=== PATIENT | female | born 1955 | race Caucasian/White ===

== ENCOUNTER 2019-05-27 15:38 | Observation (INO) | payer OTHER ==
[~2019-05-27] VITALS: Ht 170.2 cm; Wt 68.9 kg
[~2019-05-27 15:38] MED LIST: ATIVAN2 MG PO; CIPRO500 MG PO; LISINOPRIL10 MG PO; PREVACID15 M1 PO
--- OUTSIDE RECORDS SUMMARY | 2019-05-27 15:41 | XMS REPORT | Encounter Summary ---
Author Organization Unknown Address [address] [place] [address] Phone [phone] Care Team Providers Care Telephone Claims Representative Name Role Phone Dr. Theresa Calixto 3 [phone] Jon Church MD 107 [phone] Chepe Woodward MD 113 [phone] Cm Hunter MD 130 [phone] Reason for Visit dizziness Instructions 1. Vertigo vertigo: care instructions meclizine 25 mg tablet ENT referral - PLEASE FAX NOTES TO [phone]. vestibular therapy referral - PLEASE FAX NOTES TO [phone]. 2. Cough azithromycin 250 mg tablet 3. Body mass index 25-29 - overweight learning about healthy weight 4. Immunization refused Discussion Note: None recorded. Plan of Care Reminders Provider Appointments Est Patient 07/02/2018 1:30PM Theresa Calixto MD Lab None recorded. Referral ENT Referral 05/06/2018 Temo Crum MD Vestibular Therapy Referral 05/06/2018 [facility] Procedures None recorded. Surgeries None recorded. Imaging None recorded. Medications Name Start Date alendronate 70 mg tablet Take 1 tablet every week by oral route. Take with 8oz of water on empty stomach. Stay upright. Aspir-81 twice a wk azithromycin 250 mg tablet TAKE 2 TABLETS (500 MG) BY ORAL ROUTE ONCE DAILY FOR 1 DAY THEN 1 TABLET (250 MG) BY ORAL ROUTE ONCE DAILY FOR 4 DAYS Breo Ellipta 100 mcg-25 mcg/dose powder for inhalation Inhale 1 puff every day by inhalation route. citalopram 20 mg tablet Take 1 tablet every day by oral route in the morning for 30 days. cyclobenzaprine 10 mg tablet Take 1 tablet every day by oral route as needed for 30 days. may be sedating lisinopril 20 mg-hydrochlorothiazide 12.5 mg tablet TAKE 1 TABLET BY MOUTH ONCE DAILY lorazepam 2 mg tablet Take 1 tablet 3 times a day by oral route as needed. meclizine 25 mg tablet Take 1 tablet 4 times a day by oral route as needed for 10 days. mirtazapine 15 mg tablet Take 1 tablet every day by oral route at bedtime. naproxen 500 mg tablet Take 1 tablet twice a day by oral route as needed for 60 days. take with food Nuplazid 17 mg tablet TAKE 2 TABLETS BY MOUTH EVERY DAY omeprazole 40 mg capsule,delayed release Take 2 capsules every day by oral route. pravastatin 40 mg tablet TAKE ONE TABLET BY MOUTH ONCE DAILY triamcinolone acetonide 0.1 % topical cream APPLY A THIN LAYER TO THE AFFECTED AREA(S) BY TOPICAL ROUTE 2 TIMES PER DAY Vistaril 25 mg capsule Take 1 capsule twice a day by oral route. Medications Administered None recorded. Vitals Height Weight BMI Blood Pressure 5 ft 7 in 186 lbs 29.1 kg/m2 124/72 mm[Hg] Lab Results Date Name Specimen Result Interpretation Description Value Range Status Address 04/09/2018 Erythrocyte Sedimentation Rate by Westergren Method Normal Sed Rate by Modified Westergren 11 mm/h < or=30 mm/h [facility]: [address] [place] [address] 04/09/2018 Uric Acid, Serum or Plasma High Uric Acid 7.3 mg/dL 2.6- 6.0 mg/dL [facility]: [address] [place] [address] Allergies Code Code System Name Reaction Severity Status Onset 2670 RxNorm Codeine Active 68245 RxNorm Gabapentin Hallucinations Severe Active Latex, Natural Rubber Hives Moderate to Severe Active Problems Name Status Onset Date Source Anemia Active 07/18/2016 Gastro-esophageal Reflux Disease with Esophagitis Active 07/18/2016 Electrocardiogram Abnormal Active 07/18/2016 History of Polyp of Colon Active 07/18/2016 Vitamin D Deficiency Active 07/25/2016 Fracture of Shoulder Active 07/26/2016 Breast Lump Active 10/02/2016 Herpes Labialis Active 11/08/2016 Angular Cheilitis Active 01/23/2017 Osteoporosis Active 02/05/2018 Chronic Obstructive Lung Disease Active 02/26/2018 Hyperlipidemia Active Bipolar Disorder Active Anxiety Active Depressive Disorder Active Hypertensive Disorder Active Procedures Date Name Performed by 07/24/2013 Colonoscopy Information not available Hysterectomy (Total) Information not available Partial Hysterectomy Information not available Tonsillectomy Information not available Caesarean Section Information not available Vaccine List Vaccine Type influenza, injectable, quadrivalent 12/22/2015 influenza, unspecified formulation 11/10/2017 Social History Smoking Status Former Smoker (1 PPD) Past Encounters 05/06/2018 Vertigo; Cough; Body Mass Index 25-29 - Overweight; Immunization Refused Theresa Calixto MD: [address] [place] [address], Ph. 04/09/2018 Multiple Joint Pain; Fibromyalgia; Bipolar Disorder; Body Mass Index 25-29 - Overweight; Immunization; Chronic Obstructive Lung Disease Theresa Calixto MD: [address] [place] [address], Ph. History of Present Illness Dizziness Reported By: Patient HPI: Quality: symptoms worse in the evening, spinning. Severity: can't support self when standing, avoiding all activities, lying in bed. Duration: intermittent episodes lasting:, lasts <5 minutes. Onset/Timing: actual date of onset:. Alleviating factors: holding still. Aggravating factors: moving head, positional change. Associated Symptoms: no double vision, no slurred speech, no blindness, no spots in field of vision, no eye pain, no hearing loss, no difficulty understanding speech, no ear discharge, no noise in the ears, no loss of consciousness, no vomiting, no weak limbs, no facial numbness, no difficulty with speech, no tingling around the mouth, normal stools, no seizure, no facial weakness, anxiety or unsteady feelings, nausea. Prior Treatments: meclizine Note:62yo female presents with for evaluation of dizziness/vertigo since 1am morning. Review of Systems Comprehensive General Adult ROS Reported By: Patient Constitutional: Constitutional: no fever Eyes: Eyes: no vision change Cardiovascular: Cardiovascular: no chest pain Respiratory: Respiratory: no cough, no wheezing, no shortness of breath Gastrointestinal: Gastrointestinal: no abdominal pain, dyspepsia, GERD Genitourinary: Genitourinary: urinary loss of control, increased urinary frequency Musculoskeletal: Musculoskeletal: muscle aches, arthralgias/joint pain, back pain, swelling in the extremities Integumentary: Skin: no abnormal mole Neurologic: Neurologic: no loss of consciousness, no headaches, dizziness Psychiatric: Psych: no alcohol abuse, no suicidal thoughts, depression, anxiety Physical Exam Lower Leg, General Adult Exam (Female), Low Back Pain Reported By: Patient Constitutional: General Appearance: healthy-appearing, NAD, well-nourished, well- developed. Ambulation: ambulating normally Gait and Station: Appearance: normal gait Cardiovascular System: Heart Auscultation: RRR, normal S1, normal S2, no murmurs. Neck vessels: no carotid bruits Skin: Inspection and palpation: no rash, no lesions Psychiatric: Mood and Affect: active and alert, normal affect, normal mood Heating Element Builder: Heating Element Builder: present; Eyes: Lids and Conjunctivae: non-injected, no discharge, no pallor. Pupils: PERRLA. EOM: EOMI. Sclerae: non-icteric Lungs: Respiratory effort: no dyspnea. Auscultation: breath sounds normal, good air movement, no wheezing, no rales/crackles Abdomen: Bowel Sounds: normal. Inspection and Palpation: soft Musculoskeletal:: Motor Strength and Tone: normal motor strength. Joints, Bones, and Muscles: no bony abnormalities, no contractures, no malalignment, limited ROM, tenderness. Extremities: edema
--- OUTSIDE RECORDS SUMMARY | 2019-05-27 15:41 | XMS REPORT | Encounter Summary ---
Author Organization Unknown Address [address] [place] [address] Phone [phone] Care Team Providers Care Call Center Consultant Name Role Phone Dr. Theresa Calixto 3 [phone] Jon Church MD 107 [phone] Cm Hunter MD 130 [phone] Reason for Visit Hypertensive disorder; Anxiety; Osteoporosis; Bipolar disorder; Hyperlipidemia Instructions 1. Multiple joint pain 2. Screening for malignant neoplasm of colon 3. Hyperlipidemia pravastatin 40 mg tablet lipid panel, serum CMP, serum or plasma HbA1c (hemoglobin A1c), blood 4. Hypertensive disorder 5. Bipolar disorder bipolar disorder: care instructions learning about mood disorders 6. Osteoporosis vitamin D, 25-hydroxy, total, serum 7. Anxiety 8. Body mass index 25-29 - overweight learning about healthy weight 9. Immunization refused 10. Anemia CBC w/ auto diff Discussion Note: None recorded. Plan of Care Reminders Provider Appointments Est Patient 12/30/2018 1:30PM Theresa Calixto MD Lab Lipid Panel, Serum 07/02/2018 [facility] CMP, Serum or Plasma 07/02/2018 [facility] Vitamin D, 25-Hydroxy, Total, Serum 07/02/2018 [facility] CBC W/ Auto Diff 07/02/2018 [facility] HbA1C (Hemoglobin a1C), Blood 07/02/2018 [facility] Referral None recorded. Procedures None recorded. Surgeries None recorded. Imaging None recorded. Medications Name Start Date alendronate 70 mg tablet Take 1 tablet every week by oral route. Take with 8oz of water on empty stomach. Stay upright. Aspir-81 twice a wk Breo Ellipta 100 mcg-25 mcg/dose powder for inhalation Inhale 1 puff every day by inhalation route. citalopram 20 mg tablet Take 1 tablet every day by oral route in the morning for 30 days. cyclobenzaprine 10 mg tablet Take 1 tablet every day by oral route as needed for 30 days. may be sedating hydroxyzine pamoate 25 mg capsule TAKE 1 CAPSULE BY MOUTH TWICE DAILY lisinopril 20 mg-hydrochlorothiazide 12.5 mg tablet TAKE 1 TABLET BY MOUTH ONCE DAILY appt reminder 07-02-2018 1:30 PM, Theresa Calixto MD lorazepam 2 mg tablet TAKE 1 TABLET BY MOUTH THREE TIMES DAILY NEEDED mirtazapine 15 mg tablet Take 1 tablet [...] BY TOPICAL ROUTE 2 TIMES PER DAY Medications Administered None recorded. Vitals Height Weight BMI Blood Pressure 5 ft 7 in 187.4 lbs 29.4 kg/m2 120/74 mm[Hg] Lab Results None recorded. Allergies Code Code System Name Reaction Severity Status Onset 2670 RxNorm Codeine Active 26652 RxNorm Gabapentin Hallucinations Severe Active Latex, Natural [...] Status Former Smoker (1 PPD) Past Encounters 07/02/2018 Multiple Joint Pain; Screening for Malignant Neoplasm of Colon; Hyperlipidemia; Hypertensive Disorder; Bipolar Disorder; Osteoporosis; Anxiety; Body Mass Index 25-29 - Overweight; Immunization Refused; Anemia Theresa Calixto MD: [address] [place] [address], Ph. History of Present Illness Note:63yo female presents for follow-up visit. Since last visit, pt has been able to get her Nuplazid medication from [facility] in [place], now a 34mg tablet instead of two 17mg tablets. <div>Last visit 05/06/18 for vertigo (BPPV of left ear) - went to two sessions of physical therapy at [facility] with excellent results. Canalith repositioning maneuvers. Still using meclizine as needed, but no dizziness like previously. Could not tolerate half-somersault procedure, made her vomit.</div><div>
</div><div>Here today for medication refills.</div><div>
</div><div>GI consult note, Dr Church reviewed. Pt had EGD on 02/14/18 with esophagitis, hiatal hernia, gastritis. Scheduled for colonoscopy about 07/15/18. Continue Prilosec 40mg bid. </div><div> </div> <div>Pt notes that she is scheduled to see cultural anthropology professor, Dr Tristan, on July 18, 2018. Most recently had neg RM, RF, ESR of 11 on 10/15/17. Also with shoulder pain, chronic low back pain. Was told in past that she has fibromyalgia, gout, and arthritis. No longer with left ankle pain. Once took Lyrica from Dr Maloney for fibromyalgia. Was never on allopurinol for gout. Last uric acid was 7.3 on 04/09/18. Using naproxen & flexeril as needed for back pain.</div><div>
<div>Had XR of lumbar spine on 12/13/17 with diffuse degenerative disc disease in entire lumbar spine.</div><div>
</div><div> Previously:</div><div><div>Chronic cough. <span style="font-size: 14px;">Quit smoking in 2005 after 30-pk-yr (</span>1ppd<span style="font-size: 14px;"> since age 19 to 51).</span><div>
Last visit two weeks ago on 02/05/18 for mammogram & bone density results from [facility] imaging on 01/08/18. Mammogram - normal 01/08/18. Bone density with osteoporosis on 01/08/18.</div>< div>
<div>Discussed osteoporosis with pt. She notes that her mother & sister both have osteoporosis. Discussed taking both calcium & vitamin D supplement (Caltrate D, Os-Lamont D) 500-600mg bid to increase absorption. Weight- bearing exercise, such as walking. Will start Fosamax 70mg weekly - discussed taking this medication first thing in morning on empty stomach with 8oz water. Stay upright. Nothing to eat or drink for 30minutes afterwards. Repeat bone density in one year.</div><div>Pt due for regular 3-mo follow-up & medication refill by 04/16/18.</div></div></div><div>
</div><div>Pt's brother had both kidney & bladder cancer at age 44 -had one kidney removed & part of bladder - he has been in remission. Is being evaluated to see if re currence.
</div><div>Pt's mother with leukemia, SLE, and blood clots.
< /div><div>Pt's daughter, mother, sister all have lupus. At last visit on 10/15/17, neg RM, RF, ESR.
</div><div>
</div><div>PMHx:
</div><div>COPD - was on Breo in past. Smoked for 14yrs. Quit 13yrs ago.
</div><div>Parkinson's - was on medication in past.
</div><div>Memory loss - trouble remembering things
</div><div>Restless legs - was on requip in past.
</div><div>Hx of polyp of colon - saw Dr. Church, GI in 09/2017 - Due to update colonoscopy.
< /div><div>Hx of hemorrhoids.
</div><div>Bipolar disorder - on multiple meds. 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
</div><div>Anxiety d/o.</div></div></div> Review of Systems:ROS as noted in the HPI Review of Systems Comprehensive General Adult ROS [...] Neurologic: Neurologic: no loss of consciousness, no headaches Psychiatric: Psych: no alcohol abuse, no suicidal [...] active and alert, normal affect, normal mood Angle Dozer Operator: Angle Dozer Operator: present; Eyes: Lids and Conjunctivae: non-injected, no [...]
--- OUTSIDE RECORDS SUMMARY | 2019-05-27 15:41 | XMS REPORT ---
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 Allergies, Adverse Reactions, Alerts Allergy Name Allergy Type Status Severity Reaction(s) Onset Date Inactive Date Treating Clinician Comments codeine DA Active [place] 2019-04-28 00:00:00 adhesive tape DA Active U 2019-04-28 00:00:00 codeine DA Active NH 2018-08-22 00:00:00 adhesive tape DA Active U 2018-08-22 00:00:00 codeine DA Active NH 2018-08-12 00:00:00 adhesive tape DA Active U 2018-08-12 00:00:00 codeine DA Active NH 2016-05-26 00:00:00 MEDICAL TAPE DA Active MO 2016-05-11 00:00:00 Medications This patient has no known medications. Results Test Description Test Time Test Comments Text Results Atomic Results Result Comments RENAL FUNCTION PANEL 2019-05-13 06:08:00 SODIUM (test code=NA) 142 mmol/L 134-147 POTASSIUM (test code=K) 3.6 mmol/L 3.4-5.0 CHLORIDE (test code=CL) 109 mmol/L 100-108 CARBON DIOXIDE (test code=CO2) 26 mmol/L 21-32 GLUCOSE (test code=GLU) 89 MG/DL 70-110 BLOOD UREA NITROGEN (test code=BUN) 12 MG/DL 7-18 GLOMERULAR FILTRATION RATE (test code=GFR) >=60 max estimate estGFR >60 CREATININE (test code=CREAT) 0.8 MG/DL 0.6-1.0 ALBUMIN (test code=ALB) 3.3 G/DL 3.4-5.0 CALCIUM (test code=CA) 8.9 MG/DL 8.5-10.1 PHOSPHOROUS (test code=PHOS) 2.4 MG/DL 2.5-4.9 [id number] 06:08:00* Test Item Value Reference Range Comments MAGNESIUM (test code=MAG) 1.1 MG/DL 1.8-2.4 THYROID STIMULATING [id number] 06:08:00* Test Item Value Reference Range Comments THYROID STIMULATING HORMONE (test code=TSH) 1.280 mcIU/ML 0.340-4.820 VITAMIN D [id number] 06:08:00* Test Item Value Reference Range Comments VITAMIN D 25-HYDROXY (test code=VITD25) 49.4 ng/mL 30.0-100.0 Vitamin D deficiency has been defined by the [place] of[employer] and an Endocrine Society practice guideline as alevel of serum 25-OH vitamin D less than 20 ng/mL (1,2).The Endocrine Society went on to further define vitamin Dinsufficiency as a level between 21 and 29 ng/mL (2).1. IOM ([place] of [employer]). 2010. Dietary reference intakes for calcium and D. [place]: The National Academies Press.2. Ivet MF, Bhargav NC, Shima MCFARLAND, et al. Evaluation, treatment, and prevention of vitamin D deficiency: an Endocrine Society clinical practice guideline. JCEM. 2010; 96(7):1911-30.Performed At: [facility] [address] [id number] Christiano Hays MD Ph:[phone] - HEAD AND [id number] 14:51:00 Name: MERCEDEZ PEARSON [facility]ly [facility] : 1955 Age/S: 63 / F [address] Unit #: [id number] Loc: [place] [address] Phys: Poly Garnica MD Acct: [id number] Dis Date: Status: REG CLI PHONE #: [phone] Exam Date: 05/12/2019 1131 FAX #: Reason: THYROID NODULE MEMORY LAPSE EXAMS: CPT: [id number] US HEAD AND NECK 25418 EXAMINATION: - US HEAD AND NECK. LOCATION: S17. HISTORY: Thyroid nodule, memory lapse, E25.81. COMPARISON: None. TECHNIQUE: Routine ultrasound imaging of the thyroid was performed. FINDINGS: The thyroid is normal in size and echotexture. The right lobe of the thyroid measures 4.2 x 1.3 x 2 cm and the left lobe measures 2.9 x 1.1 x 1.3 cm. The isthmus measures 0.3 cm. 4 mm oval hypoechoic nodule in left aspect of thyroid isthmus. There is a questionable 5 mm hyperechoic structure in left neck soft tissues. IMPRESSION: 4 mm oval hypoechoic left thyroid nodule. Questionable 5 mm hyperechoic structure in left neck soft tissues. at 1454 Reported and signed by: Kassidy Paulino M.D. CC: Poly Garnica MD; Theresa Calixto MD Technologist: Peggy Muller, RT(R),RDMS(AB) Trnscb Date/Time: 05/12/2019 (4776) tTEDR.ANS4 PAGE 1 Signed Report Name: MERCEDEZ PEARSON [facility]ly [facility] : 1955 Age/S: 63 / F [address] Unit #: [id number] Loc: [place] [address] Phys: Poly Garnica MD Acct: [id number] Dis Date: Status: REG CLI PHONE #: [phone] Exam Date: 05/12/2019 1138 FAX #: Reason: THYROID NODULE MEMORY LAPSE EXAMS: CPT: [id number] US HEAD AND NECK [address] <Continued> Orig Print D/T: S: 05/12/2019 (3337) Probe: PAGE 2 Signed Report PARATHYROID HORMONE [id number] 12:37:00* Test Item Value Reference Range Comments PARATHYROID HORMONE INTACT (test code=PARAI) 60.8 PG/ML 26-72 RENAL FUNCTION [id number] 11:29:00* Test Item Value Reference Range Comments SODIUM (test code=NA) 142 mmol/L 134-147 POTASSIUM (test code=K) 3.6 mmol/L 3.4-5.0 CHLORIDE (test code=CL) 109 mmol/L 100-108 CARBON DIOXIDE (test code=CO2) 26 mmol/L 21-32 GLUCOSE (test code=GLU) 89 MG/DL 70-110 BLOOD UREA NITROGEN (test code=BUN) 12 MG/DL 7-18 GLOMERULAR FILTRATION RATE (test code=GFR) >=60 max estimate estGFR >60 CREATININE (test code=CREAT) 0.8 MG/DL 0.6-1.0 ALBUMIN (test code=ALB) 3.3 G/DL 3.4-5.0 CALCIUM (test code=CA) 8.9 MG/DL 8.5-10.1 PHOSPHOROUS (test code=PHOS) 2.4 MG/DL 2.5-4.9 [id number] 11:29:00* Test Item Value Reference Range Comments MAGNESIUM (test code=MAG) 1.1 MG/DL 1.8-2.4 THYROID STIMULATING [id number] 11:29:00* Test Item Value Reference Range Comments THYROID STIMULATING HORMONE (test code=TSH) 1.280 mcIU/ML 0.340-4.820 VITAMIN D [id number] 11:29:00* Test Item Value Reference Range Comments VITAMIN D 25-HYDROXY (test code=VITD25) CBC W/O [id number] 11:09:00* Test Item Value Reference Range Comments WHITE BLOOD CELL (test code=WBC) 3.6 K/mm3 3.5-11.0 RED BLOOD CELL (test code=RBC) 3.31 M/mm3 4.70-6.10 HEMOGLOBIN (test code=HGB) 9.9 G/DL 10.4-14.9 HEMATOCRIT (test code=HCT) 31.6 % 31.5-44.1 MEAN CELL VOLUME (test code=MCV) 95.5 Fl 84.5-98.6 MEAN CELL HGB (test code=MCH) 29.9 pg 27.0-34.2 MEAN CELL HGB CONCETRATION (test code=MCHC) 31.3 G/DL 31.5-34.0 RED CELL DISTRIBUTION WIDTH (test code=RDW) 14.9 SD 11.5-14.5 PLATELET COUNT (test code=PLT) 214.0 K/mm3 150-450 MEAN PLATELET VOLUME (test code=MPV) 11.50 fL 7.0-10.5 [id number] 16:17:00 RUN DATE: 05/02/19 [facility] - Lab PAGE 1 RUN TIME: 1617 Specimen Inqui ry RUN USER: INTERFACE PATIENT: MERCEDEZ PEARSON ACCT #: [id number] LOC: [place] U #: [id number] AGE/SX: 63/F ROOM: 2058 RE04/29/19REG DR: Lea Atkinson : 57 BED: A DIS: 05/01/19 STATUS: DIS IN TLOC: SPEC #: [id number] RECD: 04/30/19-1019 STATUS: FILIPE REQ #: [id number] JEB: 04/30/19- SUBM DR: Lea Atkinson MD ENTERED: 04/30/19-1019 SP TYPE: STOMACH OTHR DR: No Olga lance or Family Physician Jon Church MD, Ebima C MDORDERED: GROSS COPIES TO: No Primary or Family Ph ysician Jon Church MD [address], [address] [place] [address] Lea Atkinson MD [address] [place], [place] [address] [place] [address] [facility] [address] [place], [place] [address] MARKERS: INTRADEPARTMENTAL CONSULT PROC EDURES: GROSS (05/01/19-144) TISSUES: 1. ANTRUM - COLD BX 2. ESOPHAGUS, NOS - LOWER ESOPHAGUS COLD BX CLINICAL HISTORY COLLECTION DATE: 04/30/19 ABDOMINAL PAIN, NAUSEA VOMITING, HEMATEMESIS COM MENT Sections of the second specimen show mainly fibrinopurulent exudate jessy tible with ulceration. A very small area of squamous epithelium is present exh ibiting cytologic atypia. Reactive atypia is favored given the degree of infla mmation present. The area is cut through in deeper levels. A single small darío gn glandular space is identified elsewhere in the biopsy specimen. Consider re biopsy of the area after resolution of the CON TINUED ON NEXT PAGE RUN DATE: [facility]02[facility] 2 RUN TIME: 1617 Specimen Inquiry RUN USER: INTERFACE SPEC #: [id number] PATIENT: MERCEDEZ PEARSON #[id number] (Continued) COMMENT (Continued) inflammatory response to exclude dysplasia/malignancy if clinically indicated. Intradepartmental consultat ion: ARCHIE. FINAL DIAGNOSIS Gastric antrum, cold biopsy: REACTI VE GASTROPATHY NEGATIVE FOR HELICOBACTER ORGANISMS NEGATIVE FOR IN TESTINAL METAPLASIA NEGATIVE FOR MALIGNANCY Lower esophagus, biospy : MINUTE FRAGMENT OF SQUAMOUS EPITHELIUM WITH CYTOLOGIC ATYPIA ASSOCIATED WITH PROMINENT FIBRINOPURULENT EXUDATE COMPATIBLE WITH ULCERATION, see comment MULTIPLE LEVELS EXAMINED RRB/florina D [id number], [address] MACROSCOPIC The first specimen is received in formalin, la beled with the patient's name, and identified as "antrum cold bx", and consist s of light pink biopsy tissue measuring 0.3 cm, submitted as (1). The se cond specimen is received in formalin, labeled with the patient's name, and id entified as "lower esophagus ", and consists of harrington biopsy tissue measuring 0. 2 cm in aggregate, submitted as (2). GROSS PERFORMED AT [facility] [address] [facility] [place] [address] (P)[phone] MICROSCOPIC All of the stains, includ ing any controls performed, stain appropriately. MICROSCOPIC PERFORMED AT [facility] [address] [facility] [place] [address] (p)[phone] CONTINUED ON NEXT PAGE RUN DATE: 05/02/19 [place] - Lab PAGE 3 RUN TIME: 1616 Specimen Inquiry RUN USER: INTERFACE SPEC #: [id number] MAGI T: MERCEDEZ PEARSON #[id number] (Continued) PERFORMING SITE Diagnosis performed at: [facility] [address] [place] [address] Signed SIGNATURE ON FILE Brice Elaine MD 05/02/19 1617 END OF REPORT VITAMIN D 1,35-[id number] 12:08:00* Test Item Value Reference Range Comments VITAMIN D 1,25-DIHYDROXY (test jthv=BQJY020) 23.6 pg/mL 19.9-79.3 Performed At: [facility] [address] [id number] Sanjai MD Ph:[phone] performed at: [facility] [address] [place] [address] BASIC METABOLIC [id number] 06:17:00* Test Item Value Reference Range Comments SODIUM (test code=NA) 141 mmol/L 136-145 POTASSIUM (test code=K) 4.2 mmol/L 3.5-5.1 CHLORIDE (test code=CL) 109.0 mmol/L 98-107 CARBON DIOXIDE (test code=CO2) 26.0 mmol/L 21-32 ANION GAP (test code=GAP) 10.2 10-20 GLUCOSE (test code=GLU) 84 mg/dL 74-106 BLOOD UREA NITROGEN (test code=BUN) 12 mg/dL 7-18 GLOMERULAR FILTRATION RATE (test code=GFR) > 60 mL/min >=60 Estimated GFR by using Modified MDRD formula.Chronic kidney disease is defined as either kidney damageor GFR <60 mL/min/1.73 m2 for >3 months. CREATININE (test code=CREAT) 0.90 mg/dL 0.55-1.02 Note change in reference range due to change in reagent. BUN/CREATININE RATIO (test code=BUN/CREA) 13.3 10-20 CALCIUM (test code=CA) 8.5 mg/dL 8.5-10.1 BASIC METABOLIC [id number] 06:11:00* Test Item Value Reference Range Comments SODIUM (test code=NA) 141 mmol/L 136-145 POTASSIUM (test code=K) 4.2 mmol/L 3.5-5.1 CHLORIDE (test code=CL) 109.0 mmol/L 98-107 CARBON DIOXIDE (test code=CO2) mmol/L 21-32 ANION GAP (test code=GAP) 10-20 GLUCOSE (test code=GLU) mg/dL 74-106 BLOOD UREA NITROGEN (test code=BUN) mg/dL 7-18 GLOMERULAR FILTRATION RATE (test code=GFR) mL/min >=60 CREATININE (test code=CREAT) mg/dL 0.55-1.02 BUN/CREATININE RATIO (test code=BUN/CREA) 10-20 CALCIUM (test code=CA) mg/dL 8.5-10.1 CBC W/AUTO [id number] 06:07:00* Test Item Value Reference Range Comments WHITE BLOOD CELL (test code=WBC) 4.6 K/mm3 4.5-12.5 RED BLOOD CELL (test code=RBC) 3.71 mill/mm3 3.7-5.2 HEMOGLOBIN (test code=HGB) 10.9 gram/dL 11.5-15.5 HEMATOCRIT (test code=HCT) 33.9 % 36.0-46.0 MEAN CELL VOLUME (test code=MCV) 91.4 fL 80-98 MEAN CELL HGB (test code=MCH) 29.4 picogram 27.0-33.0 MEAN CELL HGB CONCETRATION (test code=MCHC) 32.2 gram/dL 33.0-36.0 RED CELL DISTRIBUTION WIDTH (test code=RDW) 13.6 % 11.6-16.2 RED CELL DISTRIBUTION WIDTH SD (test code=RDW-SD) 46.2 fL 37.0-51.0 PLATELET COUNT (test code=PLT) 182 K/mm3 150-450 MEAN PLATELET VOLUME (test code=MPV) 12.9 fL 6.7-11.0 NEUTROPHIL % (test code=NT%) 47.1 % 39.0-69.0 IMMATURE GRANULOCYTE % (test code=IG%) 0.4 % 0.0-5.0 LYMPHOCYTE % (test code=LY%) 39.0 % 25.0-55.0 MONOCYTE % (test code=MO%) 8.7 % 0.0-10.0 EOSINOPHIL % (test code=EO%) 3.9 % 0.0-5.0 BASOPHIL % (test code=BA%) 0.9 % 0.0-1.0 NUCLEATED RBC % (test code=NRBC%) 0.0 % 0-0 NEUTROPHIL # (test code=NT#) 2.18 K/mm3 1.8-7.7 IMMATURE GRANULOCYTE # (test code=IG#) 0.02 x10 3/uL 0-0.03 LYMPHOCYTE # (test code=LY#) 1.80 K/mm3 1.0-5.0 MONOCYTE # (test code=MO#) 0.40 K/mm3 0-0.8 EOSINOPHIL # (test code=EO#) 0.18 K/mm3 0.0-0.5 BASOPHIL # (test code=BA#) 0.04 K/mm3 0.0-0.2 NUCLEATED RBC # (test code=NRBC#) 0.00 K/mm3 0.0-0.1 MANUAL DIFF REQUIRED (test code=MDIFF) NO COMPLEMENT [id number] 10:09:00* Test Item Value Reference Range Comments COMPLEMENT C3 (test code=COMC3) mg/dL COMPLEMENT [id number] 10:09:00* Test Item Value Reference Range Comments COMPLEMENT C4 (test code=COMC4) 37 mg/dL 14-44 COMPLEMENT [id number] 10:09:00* Test Item Value Reference Range Comments COMPLEMENT C3 (test code=COMC3) 153 mg/dL 82-167 Performed At: [facility] [address] [id number] Christiano Hays MD Ph:[phone] COMPLEMENT [id number] 10:09:00* Test Item Value Reference Range Comments COMPLEMENT C4 (test code=COMC4) 37 mg/dL 14-44 BASIC METABOLIC [id number] 05:44:00* Test Item Value Reference Range Comments SODIUM (test code=NA) 140 mmol/L 136-145 POTASSIUM (test code=K) 4.1 mmol/L 3.5-5.1 CHLORIDE (test code=CL) 109.0 mmol/L 98-107 CARBON DIOXIDE (test code=CO2) 23.0 mmol/L 21-32 ANION GAP (test code=GAP) 12.1 10-20 GLUCOSE (test code=GLU) 84 mg/dL 74-106 BLOOD UREA NITROGEN (test code=BUN) 29 mg/dL 7-18 GLOMERULAR FILTRATION RATE (test code=GFR) 50 mL/min >=60 Estimated GFR by using Modified MDRD formula.Chronic kidney disease is defined as either kidney damageor GFR <60 mL/min/1.73 m2 for >3 months. CREATININE (test code=CREAT) 1.10 mg/dL 0.55-1.02 Note change in reference range due to change in reagent. BUN/CREATININE RATIO (test code=BUN/CREA) 26.4 10-20 CALCIUM (test code=CA) 8.4 mg/dL 8.5-10.1 RENAL FUNCTION [id number] 05:44:00* Test Item Value Reference Range Comments ALBUMIN (test code=ALB) 2.7 g/dL 3.4-5.0 PHOSPHORUS (test code=PHOS) 1.8 mg/dL 2.5-4.9 CALCIUM [id number] 05:44:00* Test Item Value Reference Range Comments CALCIUM IONIZED (test code=BRITANY) 1.15 mmol/L 1.12-1.32 BASIC METABOLIC [id number] 05:14:00* Test Item Value Reference Range Comments SODIUM (test code=NA) 140 mmol/L 136-145 POTASSIUM (test code=K) 4.1 mmol/L 3.5-5.1 CHLORIDE (test code=CL) 109.0 mmol/L 98-107 CARBON DIOXIDE (test code=CO2) 23.0 mmol/L 21-32 ANION GAP (test code=GAP) 12.1 10-20 GLUCOSE (test code=GLU) 84 mg/dL 74-106 BLOOD UREA NITROGEN (test code=BUN) 29 mg/dL 7-18 GLOMERULAR FILTRATION RATE (test code=GFR) 50 mL/min >=60 Estimated GFR by using Modified MDRD formula.Chronic kidney disease is defined as either kidney damageor GFR <60 mL/min/1.73 m2 for >3 months. CREATININE (test code=CREAT) 1.10 mg/dL 0.55-1.02 Note change in reference range due to change in reagent. BUN/CREATININE RATIO (test code=BUN/CREA) 26.4 10-20 CALCIUM (test code=CA) 8.4 mg/dL 8.5-10.1 RENAL FUNCTION [id number] 05:14:00* Test Item Value Reference Range Comments ALBUMIN (test code=ALB) 2.7 g/dL 3.4-5.0 PHOSPHORUS (test code=PHOS) 1.8 mg/dL 2.5-4.9 CALCIUM [id number] 05:14:00* Test Item Value Reference Range Comments CALCIUM IONIZED (test code=BRITANY) mmol/L 1.12-1.32 CBC W/AUTO [id number] 05:06:00* Test Item Value Reference Range Comments WHITE BLOOD CELL (test code=WBC) 4.0 K/mm3 4.5-12.5 RED BLOOD CELL (test code=RBC) 3.73 mill/mm3 3.7-5.2 HEMOGLOBIN (test code=HGB) 11.0 gram/dL 11.5-15.5 HEMATOCRIT (test code=HCT) 34.5 % 36.0-46.0 MEAN CELL VOLUME (test code=MCV) 92.5 fL 80-98 MEAN CELL HGB (test code=MCH) 29.5 picogram 27.0-33.0 MEAN CELL HGB CONCETRATION (test code=MCHC) 31.9 gram/dL 33.0-36.0 RED CELL DISTRIBUTION WIDTH (test code=RDW) 14.0 % 11.6-16.2 RED CELL DISTRIBUTION WIDTH SD (test code=RDW-SD) 48.1 fL 37.0-51.0 PLATELET COUNT (test code=PLT) 188 K/mm3 150-450 RESULT VERIFIED BY REPEAT ANALYSIS MEAN PLATELET VOLUME (test code=MPV) 13.0 fL 6.7-11.0 NEUTROPHIL % (test code=NT%) 51.0 % 39.0-69.0 IMMATURE GRANULOCYTE % (test code=IG%) 0.5 % 0.0-5.0 LYMPHOCYTE % (test code=LY%) 36.6 % 25.0-55.0 MONOCYTE % (test code=MO%) 8.2 % 0.0-10.0 EOSINOPHIL % (test code=EO%) 2.7 % 0.0-5.0 BASOPHIL % (test code=BA%) 1.0 % 0.0-1.0 NUCLEATED RBC % (test code=NRBC%) 0.0 % 0-0 NEUTROPHIL # (test code=NT#) 2.06 K/mm3 1.8-7.7 IMMATURE GRANULOCYTE # (test code=IG#) 0.02 x10 3/uL 0-0.03 LYMPHOCYTE # (test code=LY#) 1.48 K/mm3 1.0-5.0 MONOCYTE # (test code=MO#) 0.33 K/mm3 0-0.8 EOSINOPHIL # (test code=EO#) 0.11 K/mm3 0.0-0.5 BASOPHIL # (test code=BA#) 0.04 K/mm3 0.0-0.2 NUCLEATED RBC # (test code=NRBC#) 0.00 K/mm3 0.0-0.1 MANUAL DIFF REQUIRED (test code=MDIFF) NO [id number] 16:14:00* Test Item Value Reference Range Comments TROPONIN-I (test code=TROPI) <0.015 ng/mL 0-0.045 COMMENTS TO BOOKKEEPING MACHINE MECHANIC: COLLECT 3 HOURS AFTER PREVIOUS SAMPLESED RATE [id number] 13:19:00* Test Item Value Reference Range Comments SED RATE WESTERGREN (test code=SEDW) 29 mm/hr 0-20 SED [id number] 13:19:00* Test Item Value Reference Range Comments SED RATE (test code=SEDW) 29 mm/hr 0-20 WINTROBE METHOD: NORMAL RANGE FOR MEN: 0-9 MM/HR WOMAN: 0-20 MM/HR LIPID PROFILE (CORONARY RISK)2019-04-29 12:28:00* Test Item Value Reference Range Comments TRIGLYCERIDES (test code=TRIG) 141 mg/dL 20-150 CHOLESTEROL (test code=CHOL) 116 mg/dL 0-200 CHOLESTEROL/HDL RATIO (test code=CHOLHDL) 4.0 RATIO 0-4.9 RISK ASSOCIATED WITH CHOL/HDL RATIOS: Risk Male Female1/2 AVERAGE 3.43 3.27AVERAGE 4.97 4.442X AVERAGE 9.55 7.053X AVERAGE 23.39 11.04 REFERENCE VALUE IS RELATED TO RISK LEVELS ASRECOMMENDED BY THE JOSE. HEART, LUNG, AND BLOOD INST. HDL CHOLESTEROL (test code=HDL) 26 mg/dL 40-60 LIPOPROTEIN LDL (test code=LDL) 68 mg/dL 100-129 Reference Interval: mg/dL mmol/L Optimal <100 <2.6Near/above optimal 100-129 2.6- 3.3Borderline High 130-159 3.4-4.1High 160-189 4.1-4.9Very High >=190 >=4.9=========This LDL result is a direct measurement.========= [id number] 12:28:00* Test Item Value Reference Range Comments PHOSPHORUS (test code=PHOS) 2.7 mg/dL 2.5-4.9 CREATINE KINASE (CK)2019-04-29 12:28:00* Test Item Value Reference Range Comments CREATINE KINASE (CK) (test code=CK) 36 IUnit/L 26-208 LACTIC DEHYDROGENASE(LDH)2019-04-29 12:28:00* Test Item Value Reference Range Comments LACTIC DEHYDROGENASE(LDH) (test code=LDH) 85 IUnit/L 84-246 [id number] 12:28:00* Test Item Value Reference Range Comments MAGNESIUM (test code=MAG) 2.0 mg/dL 1.8-2.4 VITAMIN [id number] 12:28:00* Test Item Value Reference Range Comments VITAMIN B12 (test code=VITB12) 442 pg/mL 193-986 FOLIC [id number] 12:28:00* Test Item Value Reference Range Comments FOLIC ACID (test code=FOL) 16.0 ng/mL 3.10-17.50 THYROID STIMULATING [id number] 12:28:00* Test Item Value Reference Range Comments THYROID STIMULATING HORMONE (test code=TSH) 0.493 uIU/mL 0.36-3.74 TSH REFERENCE RANGES: EUTHYROID: 0.35 - 4.3 mIU/mL HYPO : > 5.5 mIU/mL HYPER : < 0.35 mIU/mL [id number] 12:28:00* Test Item Value Reference Range Comments FERRITIN (test code=VAL) 63 ng/mL 8-388 PARATHYROID HORMONE [id number] 12:28:00* Test Item Value Reference Range Comments PARATHYROID HORMONE INTACT (test code=PARAI) 161.30 pgram/mL 8.4-88 B-TYPE NATRIURETIC [id number] 12:28:00* Test Item Value Reference Range Comments B-TYPE NATRIURETIC PEPTIDE (test code=BNP) 33.32 pgram/mL 0-100 PROCALCITONIN (PCT)2019-04-29 12:28:00* Test Item Value Reference Range Comments PROCALCITONIN (PCT) (test code=PROCAL) 0.07 ng/ml Concentration Interpretation (ng/mL) <0.51 Sepsis is not likely. Local bacterial infection is possible. (LOW RISK for progression to Sepsis) 0.51 - 2.00 Sepsis is possible, but other conditions are known to elevate PCT as well. (MODERATE RISK for progression to Sepsis) > 2.00 Sepsis is likely, unless other causes are known. (HIGH RISK for progression to Severe Sepsis or Septic Shock) 10.00 High likelihood of Severe Sepsis or Septic or higher Shock. *Increased PCT levels may not always be related to systemic bacterial infection.*Low PCT levels do not automatically exclude the presence of bacterial infection.*All results should be interpreted taking into account the patients history. LIPID PROFILE (CORONARY RISK)2019-04-29 12:04:00* Test Item Value Reference Range Comments TRIGLYCERIDES (test code=TRIG) 141 mg/dL 20-150 CHOLESTEROL (test code=CHOL) 116 mg/dL 0-200 CHOLESTEROL/HDL RATIO (test code=CHOLHDL) 4.0 RATIO 0-4.9 RISK ASSOCIATED WITH CHOL/HDL RATIOS: Risk Male Female1/2 AVERAGE 3.43 3.27AVERAGE 4.97 4.442X AVERAGE 9.55 7.053X AVERAGE 23.39 11.04 REFERENCE VALUE IS RELATED TO RISK LEVELS ASRECOMMENDED BY THE JOSE. HEART, LUNG, AND BLOOD INST. HDL CHOLESTEROL (test code=HDL) 26 mg/dL 40-60 LIPOPROTEIN LDL (test code=LDL) 68 mg/dL 100-129 Reference Interval: mg/dL mmol/L Optimal <100 <2.6Near/above optimal 100-129 2.6- 3.3Borderline High 130-159 3.4-4.1High 160-189 4.1-4.9Very High >=190 >=4.9=========This LDL result is a direct measurement.========= [id number] 12:04:00* Test Item Value Reference Range Comments PHOSPHORUS (test code=PHOS) 2.7 mg/dL 2.5-4.9 CREATINE KINASE (CK)2019-04-29 12:04:00* Test Item Value Reference Range Comments CREATINE KINASE (CK) (test code=CK) 36 IUnit/L 26-208 LACTIC DEHYDROGENASE(LDH)2019-04-29 12:04:00* Test Item Value Reference Range Comments LACTIC DEHYDROGENASE(LDH) (test code=LDH) 85 IUnit/L 84-246 [id number] 12:04:00* Test Item Value Reference Range Comments MAGNESIUM (test code=MAG) 2.0 mg/dL 1.8-2.4 VITAMIN [id number] 12:04:00* Test Item Value Reference Range Comments VITAMIN B12 (test code=VITB12) 442 pg/mL 193-986 FOLIC [id number] 12:04:00* Test Item Value Reference Range Comments FOLIC ACID (test code=FOL) 16.0 ng/mL 3.10-17.50 THYROID STIMULATING [id number] 12:04:00* Test Item Value Reference Range Comments THYROID STIMULATING HORMONE (test code=TSH) 0.493 uIU/mL 0.36-3.74 TSH REFERENCE RANGES: EUTHYROID: 0.35 - 4.3 mIU/mL HYPO : > 5.5 mIU/mL HYPER : < 0.35 mIU/mL [id number] 12:04:00* Test Item Value Reference Range Comments FERRITIN (test code=VAL) 63 ng/mL 8-388 PARATHYROID HORMONE [id number] 12:04:00* Test Item Value Reference Range Comments PARATHYROID HORMONE INTACT (test code=PARAI) pgram/mL 8.4-88 [id number] 12:03:00* Test Item Value Reference Range Comments TROPONIN-I (test code=TROPI) <0.015 ng/mL 0-0.045 COMMENTS TO BOOKKEEPING MACHINE MECHANIC: COLLECT 3 HOURS AFTER PREVIOUS SAMPLEBASIC METABOLIC [id number] 11:42:00* Test Item Value Reference Range Comments SODIUM (test code=NA) 136 mmol/L 136-145 RESULT VERIFIED BY REPEAT ANALYSIS POTASSIUM (test code=K) 3.7 mmol/L 3.5-5.1 CHLORIDE (test code=CL) 102.0 mmol/L 98-107 CARBON DIOXIDE (test code=CO2) 26.0 mmol/L 21-32 ANION GAP (test code=GAP) 11.7 10-20 GLUCOSE (test code=GLU) 109 mg/dL 74-106 BLOOD UREA NITROGEN (test code=BUN) 67 mg/dL 7-18 RESULT VERIFIED BY REPEAT ANALYSIS GLOMERULAR FILTRATION RATE (test code=GFR) 20 mL/min >=60 Estimated GFR by using Modified MDRD formula.Chronic kidney disease is defined as either kidney damageor GFR <60 mL/min/1.73 m2 for >3 months. CREATININE (test code=CREAT) 2.50 mg/dL 0.55-1.02 Note change in reference range due to change in reagent. BUN/CREATININE RATIO (test code=BUN/CREA) 26.8 10-20 CALCIUM (test code=CA) 7.7 mg/dL 8.5-10.1 - RETRO [id number] 11:24:00 Name: [facility] : 1955 Age/S: 63 / F [address] Unit #: [id number] Loc: [facility] [place] [address] Phys: Poly Garnica MD Acct: [id number] Dis Date: Status: ADM IN PHONE #: [phone] Exam Date: 04/29/2019 1100 FAX #: [phone] Reason: arf EXAMS: CPT CODE: [id number] US RETRO LTD [id number] REASON FOR EXAM: arf EXAM ORDER DATE: 04/29/2019 9:37 AM Attending MKristian: Poly Garnica MD PROCEDURE: - US RETRO LTD Comparison: CT of the abdomen and pelvis the previous night FINDINGS: Right kidney: parenchyma echogenicity: Normal echogenicity size: 9.9 x 4.9 x 4.4 cm. stones: none cysts/masses: none hydronephrosis: none Left kidney: parenchyma echogenicity: Normal echogenicity size: 10.2 x 4.6 x 4.4 cm. stones: none cysts/masses: none hydronephrosis: none Urinary Bladder: Limited evaluation due to decompression by Valdez catheter. IMPRESSION: Sonographically unremarkable kidneys. Location: [facility] at 1124 Reported and signed by: Simón Lyons MD CC: Poly Garnica MD; Naun Rodas MD Technologist: Atiya Amaro RDMS [facility] [place]/Time: 04/29/2019 (112) t.SDR.RR31 Orig Print D/T: S: 04/29/2019 (112) Probe: PAGE 1 Signed Report HGBA1C 2019-04-29 11:12:00* Test Item Value Reference Range Comments GLYCOSYLATED HEMOGLOBIN (HA1C) (test code=GLYHGB) 5.4 % HbA1 SUGGESTED DIAGNOSIS: HbA1C (%) Diabetic >6.4Prediabetes 5.7 - 6.4Normal <5.7 ESTIMATED AVERAGE GLUCOSE (test code=EAG) 108 MG/DL UR SMEAR EOSINOPHIL [id number] 04:34:00* Test Item Value Reference Range Comments UR SMEAR EOSINOPHIL COUNT (test code=EOSCTU) NONE SEEN per HPF NONE SEEN UR [id number] 04:34:00* Test Item Value Reference Range Comments UR NA,RANDOM (test code=NYLA) 46 mmol/L 20-110 URINE K, RANDOM (test code=KU) 10.0 mmol/L 12-75 UR CHLORIDE RANDOM (test code=CLU) 20 mEq/L UR PROTEIN/CREATININE [id number] 04:34:00* Test Item Value Reference Range Comments UR PROTEIN RANDOM (test code=PROTU) 5.9 mg/dL 0.0-11.9 Protein levels may be falsely elevated in patients withelevated level of aminoglycoside antibiotics in CSF and inhighly concentrated urine specimens. If false elevation issuspected, contact lab for alternated testing technique. UR CREATININE RANDOM (test code=CREATU) 59.0 mg/dL 30-125 PROTEIN/CREATININE RATIO (test code=P/CRATIO) 0.10 RATIO 0.0-0.20 UR OSMOLALITY [id number] 04:34:00* Test Item Value Reference Range Comments UR OSMOLALITY RANDOM (test code=OSMOU) 272 mOsm/kg 48-962 UR SMEAR EOSINOPHIL [id number] 03:52:00* Test Item Value Reference Range Comments UR SMEAR EOSINOPHIL COUNT (test code=EOSCTU) per HPF NONE SEEN UR [id number] 03:52:00* Test Item Value Reference Range Comments UR NA,RANDOM (test code=NYLA) 46 mmol/L 20-110 URINE K, RANDOM (test code=KU) 10.0 mmol/L 12-75 UR CHLORIDE RANDOM (test code=CLU) 20 mEq/L UR PROTEIN/CREATININE [id number] 03:52:00* Test Item Value Reference Range Comments UR PROTEIN RANDOM (test code=PROTU) 5.9 mg/dL 0.0-11.9 Protein levels may be falsely elevated in patients withelevated level of aminoglycoside antibiotics in CSF and inhighly concentrated urine specimens. If false elevation issuspected, contact lab for alternated testing technique. UR CREATININE RANDOM (test code=CREATU) 59.0 mg/dL 30-125 PROTEIN/CREATININE RATIO (test code=P/CRATIO) 0.10 RATIO 0.0-0.20 UR OSMOLALITY [id number] 03:52:00* Test Item Value Reference Range Comments UR OSMOLALITY RANDOM (test code=OSMOU) 272 mOsm/kg 48-962 UR SMEAR EOSINOPHIL [id number] 03:49:00* Test Item Value Reference Range Comments UR SMEAR EOSINOPHIL COUNT (test code=EOSCTU) per HPF NONE SEEN UR [id number] 03:49:00* Test Item Value Reference Range Comments UR NA,RANDOM (test code=NYLA) 46 mmol/L 20-110 URINE K, RANDOM (test code=KU) 10.0 mmol/L 12-75 UR CHLORIDE RANDOM (test code=CLU) 20 mEq/L UR PROTEIN/CREATININE [id number] 03:49:00* Test Item Value Reference Range Comments UR PROTEIN RANDOM (test code=PROTU) mg/dL 0.0-11.9 UR CREATININE RANDOM (test code=CREATU) mg/dL 30-125 PROTEIN/CREATININE RATIO (test code=P/CRATIO) RATIO 0.0-0.20 UR OSMOLALITY [id number] 03:49:00* Test Item Value Reference Range Comments UR OSMOLALITY RANDOM (test code=OSMOU) 272 mOsm/kg 48-962 UR SMEAR EOSINOPHIL [id number] 03:47:00* Test Item Value Reference Range Comments UR SMEAR EOSINOPHIL COUNT (test code=EOSCTU) per HPF NONE SEEN UR [id number] 03:47:00* Test Item Value Reference Range Comments UR NA,RANDOM (test code=NYLA) mmol/L 20-110 URINE K, RANDOM (test code=KU) mmol/L 12-75 UR CHLORIDE RANDOM (test code=CLU) mEq/L UR PROTEIN/CREATININE [id number] 03:47:00* Test Item Value Reference Range Comments UR PROTEIN RANDOM (test code=PROTU) mg/dL 0.0-11.9 UR CREATININE RANDOM (test code=CREATU) mg/dL 30-125 PROTEIN/CREATININE RATIO (test code=P/CRATIO) RATIO 0.0-0.20 UR OSMOLALITY [id number] 03:47:00* Test Item Value Reference Range Comments UR OSMOLALITY RANDOM (test code=OSMOU) 272 mOsm/kg 48-962 URINALYSIS [id number] 02:20:00* Test Item Value Reference Range Comments UA COLOR (test code=COLU) COLORLESS YELLOW UA APPEARANCE (test code=APPU) CLEAR CLEAR UA GLUCOSE DIPSTICK (test code=DGLUU) NEGATIVE mg/dL NEGATIVE UA BILIRUBIN DIPSTICK (test code=BILU) NEGATIVE mg/dL NEGATIVE UA KETONE DIPSTICK (test code=KETU) NEGATIVE mg/dL NEGATIVE UA SPECIFIC GRAVITY (test code=SGU) 1.008 1.001-1.035 UA BLOOD DIPSTICK (test code=DAIN) Negative mg/dL NEGATIVE UA PH DIPSTICK (test code=ZOHAIB) 6.0 5.0-8.0 UA PROTEIN DIPSTICK (test code=PROU) NEGATIVE mg/dL NEGATIVE UA UROBILINIOGEN DIPSTICK (test code=URO) Normal mg/dL NEGATIVE UA NITRITE DIPSTICK (test code=LU) NEGATIVE NEGATIVE UA LEUKOCYTE ESTERASE W REFLEX (test code=LEUUR) NEGATIVE Desmond/uL NEGATIVE UA WBC (test code=WBCU) 0-5 per HPF 0-5 UA RBC (test code=RBCU) NONE SEEN #/HPF 0-5 UA EPITHELIAL CELLS (test code=EPIU) FEW per HPF FEW UA BACTERIA (test code=BACU) NONE SEEN #/HPF NONE UA HYALINE CAST (test code=HYALU) 11-20 #/LPF 0-5 UA AMORPHOUS SEDIMENT (test code=AMORU) FEW #/LPF NONE Urine Source? Clean CatchLACTIC [id number] 01:07:00* Test Item Value Reference Range Comments LACTIC ACID (test code=LACT) 1.2 mmol/L 0.4-1.9 - CT ABD PELVIS W/O [id number] 00:17:00 Name: MERCEDEZ PEARSON [facility] : 1955 Age/S: 63 / F [address] Unit #: [id number] Loc: [place] [address] Phys: Nando Lowe MD Acct: [id number] Dis Date: Status: REG ER PHONE #: [phone] Exam Date: 04/28/2019 9887 FAX #: [phone] Reason: abd pain, hematemesis, hypotensive EXAMS: CPT CODE: [id number] CT ABD PELVIS W/O CONT 14420 CT SCAN OF THE ABDOMEN AND PELVIS WITHOUT CONTRAST Dictation Location: N13 CLINICAL HISTORY: Abdominal pain hypotension hematemesis, syncope TECHNIQUE: Helical CT of the abdomen and pelvis was performed without IV or oral contrast without complication. Coronal and sagittal reconstructions were obtained. This exam was performed according to our departmental dose optimization program, which includes automated exposure control, adjustment of the mA and/ or KV according to patient size and/or use of iterative reconstruction technique. DLP 510 mGy*cm FINDINGS: There are bilateral breast implants The visualized lung bases are clear. No evidence of pleural effusion. Liver is normal in size without intrahepatic biliary dilatation or focal mass. The gallbladder and biliary ducts, pancreas, spleen, and adrenal glands are normal. There is no ev idence of hydronephrosis, solid mass, or obstructing kidney stone. Vi sualized ureters are unremarkable. There is no evidence of pancreati c mass, atrophy, calcification. There is no abdominal free fluid or a denopathy. There is no bowel wall thickening or dilatation. There is no ev idence of appendicitis, diverticulitis, colitis or bowel obstruction. The re is a moderate to large hernia with the gastric fundus in an intra thoracic location. There is reflux of stomach contents into the mildly di stended esophagus. Normal appendix is seen on axial image 79. There is m ild colon diverticulosis at the sigmoid without evidence of diverticulitis . Little air or fecal material is noted in the colon, which is primarily decompressed throughout. Small bowel unremarkable without evidence of dis tention or wall thickening. There is no free air. In the pe lvis, there is no free fluid or adenopathy present. The bladder is normal without evidence of distention, mass or calculi. There has been prior hy sterectomy. There is no adnexal mass. There is scattered calcifi c atherosclerosis. There is no AAA. Mild DJD seen in the spine. IMPRESSION: PAGE 1 Signed Report (CONTINUED) [facility] 1955 Age/S: 63 / F [address] Unit #: [id number] Loc: [place] [address] Phys: Nando Lowe MD Acct: [id number] Dis Date: Status: REG ER PHONE #: [phone] Exam Date: 04/28/2019 3767 FAX #: [phone] Reason: abd pain, hematemesis, hypotensive EXAMS: CPT CODE: [id number] CT ABD PELVIS W/O CONT 43911 < Continued> Moderate to large hiatal hernia with the gastric fundus in an intrathoracic location. There is reflux into the mildly distended esophagus. at 0017 Reported and signed by: Jacquelyn Vila M.D. CC: Nando Lowe MD Technologist:RT SHLOMO CTDI: DLP: Trnscb Date/Time: 04/29/2019 (0017) t.SDR.MVT Orig Print D/T: S: 04/29/2019 (0020) PAGE 2 Signed Report - XR ABDOMEN AP 1 [id number] 23:53:00 FAX: Nando Lowe MD Squire: St: REG Name: MERCEDEZ [facility] : [birth year] Age/S: 63/F [address] Unit #: [id number] Loc: [place] [address] Phys: Nando Lowe MD Acct: [id number] Dis Date: Status: REG ER PHONE #: [phone] Exam Date: 04/28/2019 2343 FAX #: [phone] Reason: Abdominal Pain EXAMS: CPT CODE: [id number] XR ABDOMEN AP 1 V 89725 ABDOMINAL X-RAY PLAIN FILM, 1 VIEW Location: N13 CLINICAL HISTORY: Abdominal Pain sy ncope COMPARISON: None. Technique: Supine KUB was obtained. FINDINGS: Mild degenerative changes are seen in the lumbar spine w ith mild levoscoliosis. There is little gas throughout the bowel. There is no evidence of bowel obstruction or ileus. There is no evidence of free intraperitoneal air although supine KUB is relatively insensitive to that finding. No abnormal soft tissue or calcific densities are present. IMPRESSION: No acute abnormality is demonstrated by plain film KUB. Little gas in the bowel noted. at 0079 Reported and signed by: Jacquelyn Vila M.D. CC: Nando Magdaleno MD Technologist: Shirley Morgan rd Trnscrd Date/Time/By: 04/28/2019 (59 12) : By: Lubna Orig Print D/T: S: 04/28/2019 (8018) PAGE 1 Signed Report - XR CHEST 1 [id number] 23:48:00 FAX: Nando Lowe MD Squire: St: REG Name: MERCEDEZ BLACK [facility] : [birth year] Age/S: 63/F [address] Unit #: [id number] Loc: [place] [address] Phys: Nando Lowe MD Acct: [id number] Dis Date: Status: REG ER PHONE #: [phone] Exam Date: 04/28/2019 2343 FAX #: [phone] Reason: Abdominal Pain EXAMS: CPT CODE: [id number] XR CHEST 1 V 69542 Location: T18 CHEST X- RAY: AP frontal projection, one view, 04/28/19 CLINICAL HISTORY: Abdominal pain, ER presentation COMPARISON EXAMS: Chest x-ray exam 02/22/18 FINDINGS: Heart, lungs, and mediastinal structures are within normal limits. No evolving process or pleural based finding. No active CHF or pneumonia. IMPRESSION: No acute finding Marisela ctronically Signed by Leela Calixto M.D. o n 04/28/2019 at 1711 Reported and signed by: Leela Calixto M.D. CC: Nando Lowe MD Technologist: Shirley Crabtree Trnscrd Date/Time/By: 04/28/2019 (8678) : By: [email or web address] Orig Print D/T: S: 04/28/2019 (7523) PAGE 1 Signed Report BASIC METABOLIC PANEL 2019-04-28 23:43:00* Test Item Value Reference Range Comments SODIUM (test code=NA) 127 mmol/L 136-145 POTASSIUM (test code=K) 3.4 mmol/L 3.5-5.1 CHLORIDE (test code=CL) 86.0 mmol/L 98-107 CARBON DIOXIDE (test code=CO2) 29.0 mmol/L 21-32 ANION GAP (test code=GAP) 15.4 10-20 GLUCOSE (test code=GLU) 108 mg/dL 74-106 BLOOD UREA NITROGEN (test code=BUN) 96 mg/dL 7-18 GLOMERULAR FILTRATION RATE (test code=GFR) 9 mL/min >=60 Estimated GFR by using Modified MDRD formula.Chronic kidney disease is defined as either kidney damageor GFR <60 mL/min/1.73 m2 for >3 months. CREATININE (test code=CREAT) 5.00 mg/dL 0.55-1.02 Note change in reference range due to change in reagent. BUN/CREATININE RATIO (test code=BUN/CREA) 19.2 10-20 CALCIUM (test code=CA) 8.3 mg/dL 8.5-10.1 HEPATIC FUNCTION [id number] 23:43:00* Test Item Value Reference Range Comments TOTAL PROTEIN (test code=PROT) 6.3 gram/dL 6.4-8.2 ALBUMIN (test code=ALB) 2.8 g/dL 3.4-5.0 GLOBULIN (test code=GLOB) 3.5 gram/dL 2.7-4.2 ALBUMIN/GLOBULIN RATIO (test code=A/G) 0.8 0.75-1.50 BILIRUBIN TOTAL (test code=BILT) 0.40 mg/dL 0.0-1.0 BILIRUBIN DIRECT (test code=BILD) 0.11 mg/dL 0.0-0.20 SGOT/AST (test code=AST) 10 IUnit/L 15-37 SGPT/ALT (test code=ALT) 11 IUnit/L 12-78 ALKALINE PHOSPHATASE TOTAL (test code=ALKP) 71 IUnit/L 45-117 Note change in reference range due to change in reagent. [id number] 23:43:00* Test Item Value Reference Range Comments LIPASE (test code=LIP) 120 U/L 73.0-393.0 [id number] 23:43:00* Test Item Value Reference Range Comments TROPONIN-I (test code=TROPI) <0.015 ng/mL 0-0.045 BASIC METABOLIC [id number] 23:38:00* Test Item Value Reference Range Comments SODIUM (test code=NA) 127 mmol/L 136-145 POTASSIUM (test code=K) 3.4 mmol/L 3.5-5.1 CHLORIDE (test code=CL) 86.0 mmol/L 98-107 CARBON DIOXIDE (test code=CO2) mmol/L 21-32 ANION GAP (test code=GAP) 10-20 GLUCOSE (test code=GLU) mg/dL 74-106 BLOOD UREA NITROGEN (test code=BUN) mg/dL 7-18 GLOMERULAR FILTRATION RATE (test code=GFR) mL/min >=60 CREATININE (test code=CREAT) mg/dL 0.55-1.02 BUN/CREATININE RATIO (test code=BUN/CREA) 10-20 CALCIUM (test code=CA) mg/dL 8.5-10.1 HEPATIC FUNCTION [id number] 23:38:00* Test Item Value Reference Range Comments TOTAL PROTEIN (test code=PROT) gram/dL 6.4-8.2 ALBUMIN (test code=ALB) g/dL 3.4-5.0 GLOBULIN (test code=GLOB) gram/dL 2.7-4.2 ALBUMIN/GLOBULIN RATIO (test code=A/G) 0.75-1.50 BILIRUBIN TOTAL (test code=BILT) mg/dL 0.0-1.0 BILIRUBIN DIRECT (test code=BILD) mg/dL 0.0-0.20 SGOT/AST (test code=AST) IUnit/L 15-37 SGPT/ALT (test code=ALT) IUnit/L 12-78 ALKALINE PHOSPHATASE TOTAL (test code=ALKP) IUnit/L 45-117 [id number] 23:38:00* Test Item Value Reference Range Comments LIPASE (test code=LIP) U/L 73.0-393.0 [id number] 23:38:00* Test Item Value Reference Range Comments TROPONIN-I (test code=TROPI) ng/mL 0-0.045 PROTHROMBIN [id number] 23:33:00* Test Item Value Reference Range Comments PROTHROMBIN TIME PATIENT (test code=PTP) 12.0 seconds 9.0-14.0 INTERNATIONAL NORMAL RATIO (test code=INR) 1.0 0.8-1.2 The therapeutic range for oral anticoagulant therapy formost indications is an international normalized ratio (INR)of between 2.0 and 3.0. The recommended therapeutic INRrange for various clinical situations is listed below: Clinical Situation INR range Pulmonary e mbolism treatment (2.0-3.0)Venous thrombosis treatmentVenous thrombosis prophylaxis (high risk surgery)Prevention of systemic embolism from: Acute myocardial infarction Valvular heart disease Atrial fibrillation Mechanical prosthetic heart valves (2.5-3.5) IS PATIENT ON ANTICOAGULANTS? NTHROMBOPLASTIN TIME [id number] 23:33:00* Test Item Value Reference Range Comments THROMBOPLASTIN TIME PARTIAL (test code=PTT) 21.5 seconds 25.0-36.5 IS PATIENT ON ANTICOAGULANTS? NCBC W/O [id number] 23:24:00* Test Item Value Reference Range Comments WHITE BLOOD CELL (test code=WBC) 9.5 K/mm3 4.5-12.5 RED BLOOD CELL (test code=RBC) 4.17 mill/mm3 3.7-5.2 HEMOGLOBIN (test code=HGB) 12.3 gram/dL 11.5-15.5 HEMATOCRIT (test code=HCT) 36.5 % 36.0-46.0 MEAN CELL VOLUME (test code=MCV) 87.5 fL 80-98 MEAN CELL HGB (test code=MCH) 29.5 picogram 27.0-33.0 MEAN CELL HGB CONCETRATION (test code=MCHC) 33.7 gram/dL 33.0-36.0 RED CELL DISTRIBUTION WIDTH (test code=RDW) 14.4 % 11.6-16.2 PLATELET COUNT (test code=PLT) 255 K/mm3 150-450 MEAN PLATELET VOLUME (test code=MPV) 12.8 fL 6.7-11.0 CBC W/O [id number] 23:21:00* Test Item Value Reference Range Comments WHITE BLOOD CELL (test code=WBC) K/mm3 4.5-12.5 RED BLOOD CELL (test code=RBC) mill/mm3 3.7-5.2 HEMOGLOBIN (test code=HGB) 12.3 gram/dL 11.5-15.5 HEMATOCRIT (test code=HCT) 36.5 % 36.0-46.0 MEAN CELL VOLUME (test code=MCV) fL 80-98 MEAN CELL HGB (test code=MCH) picogram 27.0-33.0 MEAN CELL HGB CONCETRATION (test code=MCHC) gram/dL 33.0-36.0 RED CELL DISTRIBUTION WIDTH (test code=RDW) % 11.6-16.2 PLATELET COUNT (test code=PLT) K/mm3 150-450 MEAN PLATELET VOLUME (test code=MPV) fL 6.7-11.0 US PELVIC (NON OB) WORKMAN OR [id number] 09:48:00 [place] [address] Patient Name: MERCEDEZ PEARSON MR #: [id number] : 1955 Age/Sex: 63/F Req #: [id number] Adm Physician: Ordered by: NARINDER BELLA MD Report #: [id number] Location: Room/Bed: Procedure: [id number] US/US P ELVIC (NON OB) WORKMAN OR F/U Exam Date: 03/10/19 Exam T harrison: 851 REPORT STATUS: Signed EXAM: Renal Ultrasound INDICATION: [id number] CHRONIC KIDN EY DISEASE STAGE III COMPARISON: None TECHNIQUE: Transverse and longitudi nal images of the kidneys and bladder were obtained. FINDINGS: Right Kidney: Length: 11.1 cm Appearance: Normal echogenicity. Collec ting system: No hydronephrosis Stones: None Cyst/Mass: None Left Kidney : Length: 10.0 cm Appearance: Normal echogenicity. Collecting system: N o hydronephrosis Stones: None Cyst/Mass: None Bladder: No mass or ca lculi. Bilateral ureteral jets visualized. Prevoid volume of 86 cc. Post void volume of 11.6 cc. IMPRESSION: No hydronephrosis or renal calculi. Pre an d post void bladder volume estimates as above. Signed by: Brittany Urias MD on 03/10/2019 9:49 AM Dictated By: BRITTANY URIAS MD 8 Transcribed By: JAMES on 03/10/19948 COPY TO: NARINDER BELLA MD RENAL RETROPERITONEAL [id number] 09:48:00 [place] [address] Patient Name: MERCEDEZ PEARSON MR #: [id number] : 1955 Age/Sex: 63/F Req #: [id number] Adm Physician: Ordered by: NARINDER BELLA MD Report #: [id number] Location: Room/Bed: Procedure: [id number] US/US R ENAL RETROPERITONEAL COMP Exam Date: 03/10/19 Exam T harrison: 0852 REPORT STATUS: Signed EXAM: Renal Ultrasound INDICATION: [id number] CHRONIC KIDN EY DISEASE STAGE III COMPARISON: None TECHNIQUE: Transverse and longitudi nal images of the kidneys and bladder were obtained. FINDINGS: Right Kidney: Length: 11.1 cm Appearance: Normal echogenicity. Collec ting system: No hydronephrosis Stones: None Cyst/Mass: None Left Kidney : Length: 10.0 cm Appearance: Normal echogenicity. Collecting system: N o hydronephrosis Stones: None Cyst/Mass: None Bladder: No mass or ca lculi. Bilateral ureteral jets visualized. Prevoid volume of 86 cc. Post void volume of 11.6 cc. IMPRESSION: No hydronephrosis or renal calculi. Pre an d post void bladder volume estimates as above. Signed by: Brittany Urias MD on 03/10/2019 9:49 AM Dictated By: BRITTANY URIAS MD 8 Transcribed By: JAMES on 03/10/19948 COPY TO: NARINDER BELLA MD URINALYSIS [id number] 07:03:00* Test Item Value Reference Range Comments UA COLOR (test code=COLU) STRAW YELLOW UA APPEARANCE (test code=APPU) CLEAR CLEAR UA GLUCOSE DIPSTICK (test code=DGLUU) NEGATIVE NEG UA BILIRUBIN DIPSTICK (test code=BILU) NEGATIVE NEG UA KETONE DIPSTICK (test code=KETU) TRACE NEG UA SPECIFIC GRAVITY (test code=SGU) 1.009 1.001-1.035 UA BLOOD DIPSTICK (test code=DAIN) NEG NEG UA PH DIPSTICK (test code=ZOHAIB) 5.0 5-9 UA PROTEIN DIPSTICK (test code=PROU) NEGATIVE NEG UA UROBILINIOGEN DIPSTICK (test code=URO) NEGATIVE mg/dL NEG UA NITRITE DIPSTICK (test code=LU) NEG NEG UA LEUKOCYTE ESTERASE DIPSTICK (test code=LEUU) NEG NEG UA WBC (test code=WBCU) /HPF 0-2 UA RBC (test code=RBCU) 0-2 #/hpf NONE SEEN UA EPITHELIAL CELLS (test code=EPIU) RARE #/HPF RARE-FEW UA HYALINE CAST (test code=HYALU) 0-2 #/hpf () UA MUCUS (test code=MUCU) RARE NONE SEEN URINALYSIS [id number] 07:03:00* Test Item Value Reference Range Comments UA COLOR (test code=COLU) STRAW YELLOW UA APPEARANCE (test code=APPU) CLEAR CLEAR UA GLUCOSE DIPSTICK (test code=DGLUU) NEGATIVE NEG UA BILIRUBIN DIPSTICK (test code=BILU) NEGATIVE NEG UA KETONE DIPSTICK (test code=KETU) TRACE NEG UA SPECIFIC GRAVITY (test code=SGU) 1.009 1.001-1.035 UA BLOOD DIPSTICK (test code=DAIN) NEG NEG UA PH DIPSTICK (test code=ZOHAIB) 5.0 5-9 UA PROTEIN DIPSTICK (test code=PROU) NEGATIVE NEG UA UROBILINIOGEN DIPSTICK (test code=URO) NEGATIVE mg/dL NEG UA NITRITE DIPSTICK (test code=LU) NEG NEG UA LEUKOCYTE ESTERASE DIPSTICK (test code=LEUU) NEG NEG UA WBC (test code=WBCU) #/hpf 3-5 UA RBC (test code=RBCU) 0-2 #/hpf NONE SEEN UA EPITHELIAL CELLS (test code=EPIU) RARE #/HPF RARE-FEW UA HYALINE CAST (test code=HYALU) 0-2 #/hpf () UA MUCUS (test code=MUCU) RARE NONE SEEN BASIC METABOLIC [id number] 00:06:00* Test Item Value Reference Range Comments SODIUM (test code=NA) 136 mEq/L 135-145 POTASSIUM (test code=K) 4.6 mEq/L 3.5-5.0 CHLORIDE (test code=CL) 101 mEq/L 100-115 CARBON DIOXIDE (test code=CO2) 25 mEq/L 22-31 GLUCOSE (test code=GLU) 102 mg/dL 65-110 BLOOD UREA NITROGEN (test code=BUN) 15 mg/dL 7-18 GLOMERULAR FILTRATION RATE (test code=GFR) 63 ml/min >60 CREATININE (test code=CREAT) 0.9 mg/dL 0.5-1.0 CALCIUM (test code=CA) 8.7 mg/dL 8.4-10.2 BASIC METABOLIC [id number] 00:06:00* Test Item Value Reference Range Comments SODIUM (test code=NA) 136 mEq/L 135-145 POTASSIUM (test code=K) 4.6 mEq/L 3.5-5.0 CHLORIDE (test code=CL) 101 mEq/L 100-115 CARBON DIOXIDE (test code=CO2) 25 mEq/L 22-31 GLUCOSE (test code=GLU) 102 mg/dL 65-110 BLOOD UREA NITROGEN (test code=BUN) 15 mg/dL 7-18 GLOMERULAR FILTRATION RATE (test code=GFR) 63.4 >60 Unit of measure: mL/min/1.73 [id number] Range:Healthy Adults >90 mL/min/1.73 m2 For Chronic Kidney Disease: Stage II Mild Decrease in GFR 60-90 Stage III Moderate Decrease in GFR 30-59 Stage IV Severe Decrease in GFR 15-29 Stage V Kidney Failure <15Unit of measure: mL/min/1.73 [id number] Range:Healthy Adults >90 mL/min/1.73 m2 For Chronic Kidney Disease: Stage II Mild Decrease in GFR 60-90 Stage III Moderate Decrease in GFR 30-59 Stage IV Severe Decrease in GFR 15-29 Stage V Kidney Failure <15 CREATININE (test code=CREAT) 0.9 mg/dL 0.5-1.0 CALCIUM (test code=CA) 8.7 mg/dL 8.4-10.2 URINALYSIS [id number] 23:56:00* Test Item Value Reference Range Comments UA COLOR (test code=COLU) STRAW YELLOW UA APPEARANCE (test code=APPU) CLEAR CLEAR UA GLUCOSE DIPSTICK (test code=DGLUU) NEGATIVE NEG UA BILIRUBIN DIPSTICK (test code=BILU) NEGATIVE NEG UA KETONE DIPSTICK (test code=KETU) TRACE NEG UA SPECIFIC GRAVITY (test code=SGU) 1.009 1.001-1.035 UA BLOOD DIPSTICK (test code=DAIN) NEG NEG UA PH DIPSTICK (test code=ZOHAIB) 5.0 5-9 UA PROTEIN DIPSTICK (test code=PROU) NEGATIVE NEG UA UROBILINIOGEN DIPSTICK (test code=URO) NEGATIVE mg/dL NEG UA NITRITE DIPSTICK (test code=LU) NEG NEG UA LEUKOCYTE ESTERASE DIPSTICK (test code=LEUU) NEG NEG UA WBC (test code=WBCU) 3-5 #/hpf NONE SEEN UA RBC (test code=RBCU) 0-2 #/hpf NONE SEEN UA EPITHELIAL CELLS (test code=EPIU) RARE #/HPF RARE-FEW UA HYALINE CAST (test code=HYALU) 0-2 #/hpf UA MUCUS (test code=MUCU) RARE NONE SEEN URINALYSIS [id number] 23:56:00* Test Item Value Reference Range Comments UA COLOR (test code=COLU) STRAW YELLOW UA APPEARANCE (test code=APPU) CLEAR CLEAR UA GLUCOSE DIPSTICK (test code=DGLUU) NEG UA BILIRUBIN DIPSTICK (test code=BILU) NEG UA KETONE DIPSTICK (test code=KETU) TRACE NEG UA SPECIFIC GRAVITY (test code=SGU) 1.009 1.001-1.035 UA BLOOD DIPSTICK (test code=DAIN) NEG UA PH DIPSTICK (test code=ZOHAIB) 5.0 5-9 UA PROTEIN DIPSTICK (test code=PROU) NEG UA UROBILINIOGEN DIPSTICK (test code=URO) mg/dL NEG UA NITRITE DIPSTICK (test code=LU) NEG NEG UA LEUKOCYTE ESTERASE DIPSTICK (test code=LEUU) NEG NEG UA WBC (test code=WBCU) /HPF 0-2 UA RBC (test code=RBCU) 0-2 #/hpf NONE SEEN UA EPITHELIAL CELLS (test code=EPIU) #/HPF RARE-FEW UA HYALINE CAST (test code=HYALU) 0-2 #/hpf () UA MUCUS (test code=MUCU) RARE NONE SEEN BASIC METABOLIC [id number] 07:18:00* Test Item Value Reference Range Comments SODIUM (test code=NA) 136 mmol/L 136-145 POTASSIUM (test code=K) 5.1 mmol/L 3.5-5.1 CHLORIDE (test code=CL) 102.0 mmol/L 98-107 CARBON DIOXIDE (test code=CO2) 23.6 mmol/L 21-32 GLUCOSE (test code=GLU) 95 mg/dL 70-110 BLOOD UREA NITROGEN (test code=BUN) 20 mg/dL 7-18 GLOMERULAR FILTRATION RATE (test code=GFR) 54.9 >60 Unit of measure: mL/min/1.73 [id number] Range:Healthy Adults >90 mL/min/1.73 m2 For Chronic Kidney Disease: Stage II Mild Decrease in GFR 60-90 Stage III Moderate Decrease in GFR 30-59 Stage IV Severe Decrease in GFR 15-29 Stage V Kidney Failure <15 CREATININE (test code=CREAT) 1.02 mg/dL 0.55-1.30 CALCIUM (test code=CA) 9.0 mg/dL 8.2-10.1 ISTAT-6+2018-08-23 12:32:00* Test Item Value Reference Range Comments ISTAT-HEMOGLOBIN (test code=HBP) 11.6 g/dL 12-16 ISTAT-HEMATOCRIT (test code=HCTP) 34 % 38-51 ISTAT-SODIUM (test code=NAP) 138 mmol/L 138-146 ISTAT-POTASSIUM (test code=KP) 5.6 mmol/L 3.5-4.9 ISTAT-CHLORIDE (test code=CLP) 108 mmol/L 98-109 ISTAT-GLUCOSE (test code=GLUP) 98 mg/dL 70-105 ISTAT-BUN (test code=BUN-P) 26 mg/dL 8-26 BASIC METABOLIC [id number] 13:45:00* Test Item Value Reference Range Comments SODIUM (test code=NA) 137 mmol/L 136-145 POTASSIUM (test code=K) 5.3 mmol/L 3.5-5.1 CHLORIDE (test code=CL) 102.0 mmol/L 98-107 CARBON DIOXIDE (test code=CO2) 20.3 mmol/L 21-32 GLUCOSE (test code=GLU) 100 mg/dL 70-110 BLOOD UREA NITROGEN (test code=BUN) 47 mg/dL 7-18 VERIFIED BY REPEAT ANALYSIS.CRITICAL VALUE CALLED TO ANUSHA WITH 'S OFFICEREAD BACK & CONFIRMED? SATINDER MohamudLAB.AEG 08/22/18 1345 GLOMERULAR FILTRATION RATE (test code=GFR) 24.0 >60 Unit of measure: mL/min/1.73 [id number] Range:Healthy Adults >90 mL/min/1.73 m2 For Chronic Kidney Disease: Stage II Mild Decrease in GFR 60-90 Stage III Moderate Decrease in GFR 30-59 Stage IV Severe Decrease in GFR 15-29 Stage V Kidney Failure <15 CREATININE (test code=CREAT) 2.09 mg/dL 0.55-1.30 CALCIUM (test code=CA) 9.2 mg/dL 8.2-10.1 [id number] 14:58:00* Test Item Value Reference Range Comments GLUBED (test code=GLUBED) 100 mg/dL 74-106 Performed by certified hand router operator at [facility] BASIC METABOLIC [id number] 15:36:00* Test Item Value Reference Range Comments SODIUM (test code=NA) 137 mmol/L 136-145 POTASSIUM (test code=K) 4.4 mmol/L 3.5-5.1 CHLORIDE (test code=CL) 108.0 mmol/L 98-107 CARBON DIOXIDE (test code=CO2) 23.0 mmol/L 21-32 ANION GAP (test code=GAP) 10.4 10-20 GLUCOSE (test code=GLU) 104 mg/dL 74-106 BLOOD UREA NITROGEN (test code=BUN) 14 mg/dL 7-18 GLOMERULAR FILTRATION RATE (test code=GFR) 46 mL/min >=60 Estimated GFR by using Modified MDRD formula.Chronic kidney disease is defined as either kidney damageor GFR <60 mL/min/1.73 m2 for >3 months. CREATININE (test code=CREAT) 1.20 mg/dL 0.55-1.02 Note change in reference range due to change in reagent. BUN/CREATININE RATIO (test code=BUN/CREA) 11.7 10-20 CALCIUM (test code=CA) 8.4 mg/dL 8.5-10.1 BASIC METABOLIC [id number] 15:29:00* Test Item Value Reference Range Comments SODIUM (test code=NA) 137 mmol/L 136-145 POTASSIUM (test code=K) 4.4 mmol/L 3.5-5.1 CHLORIDE (test code=CL) 108.0 mmol/L 98-107 CARBON DIOXIDE (test code=CO2) mmol/L 21-32 ANION GAP (test code=GAP) 10-20 GLUCOSE (test code=GLU) mg/dL 74-106 BLOOD UREA NITROGEN (test code=BUN) mg/dL 7-18 GLOMERULAR FILTRATION RATE (test code=GFR) mL/min >=60 CREATININE (test code=CREAT) mg/dL 0.55-1.02 BUN/CREATININE RATIO (test code=BUN/CREA) 10-20 CALCIUM (test code=CA) mg/dL 8.5-10.1 - XR FINGER(S) 2+V [id number] 15:28:00 FAX: Theresa Corley [phone] Squire: St: PRE FAX: Alexandr Núñez NP [phone] FAX: SocttJayy luna DO Name: MERC[facility]EZ [facility] : 1955 Age/S: 63/F [address] Unit #: [id number] Loc: [place] [address] Phys: Alexandr Núñez NP Acct: [id number] Dis Date: Status: PRE ER PH ONE #: [phone] Exam Date: 08/16/2018 1514 FAX #: [phone] Reason: 3RD FINGER SWELLING EXAMS: CPT CODE: [id number] XR FINGER(S) 2+[place] [address] REASON FOR EXAM: 3RD FINGER SWELLING EXAM ORDER DATE: 2:57 PM Ordering Melyssa: MANUEL Brito ROCEDURE: - XR FINGER(S) 2+V LT FINDINGS: 3 views of the left 3rd digit were obtained. The osseous structures are unremarkable in size and shape. The joint spaces are maintained. No evidence of fracture. IMPRESSION: Diffuse soft tissue swelling. No acute osseous abno rmality at 1528 Reported and signed by: Kwabena Crooks M.D. CC: Theresa Calixto MD; Alexandr Núñez NP; Jayy Novoa DO Technologist: FADY JONES; Narinder Norton, RT(R Trnscrd Date/Time/By: 019 (1528) : By: [email or web address] Orig Print D/T: S: 08/16/2018 (4535) PAGE 1 Signed Report CBC W/O [id number] 15:19:00* Test Item Value Reference Range Comments WHITE BLOOD CELL (test code=WBC) 9.0 K/mm3 4.5-12.5 RED BLOOD CELL (test code=RBC) 4.03 mill/mm3 3.7-5.2 HEMOGLOBIN (test code=HGB) 10.6 gram/dL 11.5-15.5 HEMATOCRIT (test code=HCT) 34.2 % 36.0-46.0 MEAN CELL VOLUME (test code=MCV) 84.9 fL 80-98 MEAN CELL HGB (test code=MCH) 26.3 picogram 27.0-33.0 MEAN CELL HGB CONCETRATION (test code=MCHC) 31.0 gram/dL 33.0-36.0 RED CELL DISTRIBUTION WIDTH (test code=RDW) 16.2 % 11.6-16.2 PLATELET COUNT (test code=PLT) 243 K/mm3 150-450 MEAN PLATELET VOLUME (test code=MPV) 11.5 fL 6.7-11.0 - XR HAND 3 + V [id number] 13:00:00 FAX: Theresa Corley [phone] Squire: [facility]: [facility] FAX: Peggy Paidlla NP Name: MERCEDEZ [facility] : 1955 Age/S: 63/F [address] Unit #: [id number] Loc: [place] [address] Phys: Peggy Padilla NP Acct: [id number] Dis Date: Status: REG ER PHONE #: [phone] Exam Date: 08/12/2018 1236 FAX #: [phone] Reason: multiple lacerations EXAMS: CPT CODE: [id number] XR HAND 3 + V [place] [address] HISTORY: Multiple lacerations. COMPARISON: None av ailable. 3 views of the left hand: No acute fracture or dislocation. Polyarticular joint space narrowing. No erosive or destru ctive changes are noted. Bone mineralization and soft tissues are normal. IMPRESSION: No acute fracture or dislocation. No erosive or destructive changes. at 1300 Reported and signed by: Bro Santillan M.D. CC: Theresa Calixto MD; Me fam Padilla NP Technologist: Serena Lam(Denice) Trnscrd Date/Time/By: 08/12/2018 (1300) : By: [email or web address] O rig Print D/T: S: 08/12/2018 (1230) PAGE 1 Signed Report
--- OUTSIDE RECORDS SUMMARY | 2019-05-27 15:41 | XMS REPORT | Encounter Summary ---
Author Organization Unknown Address [address] [place] [address] Phone [phone] Care Team Providers Care Seed Cutter Name Role Phone Dr. Theresa Calixto 3 [phone] Theresa Calixto MD 3 [phone] Jon Church MD 107 [phone] Chepe Woodward MD 113 [phone] Cm Hunter MD 130 [phone] Reason for Visit Bipolar disorder Instructions 1. Multiple joint pain rheumatology referral - Please assist our patient with an appointment/FX RESULTS TO [phone]. Thank you uric acid, serum or plasma erythrocyte sedimentation rate by westergren method methylprednisolone 4 mg tablets in a dose pack 2. Fibromyalgia 3. Bipolar disorder mirtazapine 15 mg tablet 4. Body mass index 25-29 - overweight learning about healthy weight 5. Immunization 6. Chronic obstructive lung disease Discussion Note: None recorded. Plan of Care Reminders Provider Appointments Est Patient 07/02/2018 1:30PM Theresa Calixto MD Lab Uric Acid, Serum or Plasma 04/09/2018 [facility] Erythrocyte Sedimentation Rate by Westergren Method 04/09/2018 [facility] Referral Rheumatology Referral 04/09/2018 Marshal Tristan MD Procedures None recorded. Surgeries None recorded. Imaging None recorded. Medications Name Start Date alendronate 70 mg tablet Take 1 tablet every week by oral route. Take with 8oz of water on empty stomach. Stay upright. aspirin 81 mg tablet,delayed release Take 1 tablet every day by oral route. Breo Ellipta 100 mcg-25 mcg/dose powder for [...] a day by oral route as needed. methylprednisolone 4 mg tablets in a dose pack Take 1 dose pk by oral route. mirtazapine 15 mg tablet Take 1 tablet [...] ft 7 in 186 lbs 29.1 kg/m2 124/82 mm[Hg] Lab Results None recorded. Allergies Code Code System Name Reaction Severity Status Onset 2669 RxNorm Codeine Active 93595 RxNorm Gabapentin Hallucinations Severe Active Latex, Natural [...] Status Former Smoker (1 PPD) Past Encounters 04/09/2018 Multiple Joint Pain; Fibromyalgia; Bipolar Disorder; Body Mass Index 25-29 - Overweight; Immunization; Chronic Obstructive Lung Disease Theresa Calixto MD: [id number] [place] [address], Ph. History of Present Illness Note:62yo female presents with her for follow-up visit. Here today for left ankle pain for past six weeks. No injury or trauma. Had knot on inner left lower leg at last visit on 02/22/18 with negative US of LLE, no DVT, but (+) d- dimer. Taking ASA qod, to minimize bruising. Pt notes that knot has resolved, but pain has continued lower in left ankle. Pt rates pain at 8/10 in left ankle, 3/10 in right ankle. Also with shoulder pain, chronic low back pain. Was told in past that she has fibromyalgia, gout, and arthritis. Has never seen paraffin plant operator, but has had testing several times with negative RM & RF. Most recently had neg RM, RF, ESR of 11 on 10/15/17.<div>Pt states that she once took Lyrica from Dr Maloney for fibromyalgia.</div><div>Was never on allopurinol for gout & doesn't describe podagra or classic gout flare.</div><div>No uric acid levels in recent or historical lab results.</div><div>Had XR of lumbar spine on 12/13/17 with diffuse degenerative disc disease in entire lumbar spine.< br><div>No specific injury or trauma to left ankle. No redness or warmth. Trace swelling of left ankle. No decrease in ROM, but painful with both flexion/extension and inversion/eversion of left ankle. Neurovascular intact. No prior hx of DM or neuropathy.</div><div>
Previously:
62yo female presents with daughter for evaluation of area of swelling & tenderness of left lower leg for past 2 days. No injury or trauma to leg. No insect bite. No redness or warmth. Noticed tender area about size of ping-pong ball on inside of left calf. No hx of DVT. No long car travel. No fever, shortness of breath, wheeze, palpitations. Chronic cough. <span style="font-size: 14px;">Quit smoking in 2005 after 30-pk-yr (</span>1ppd<span style="font-size: 14px;"> since age 19 to 51). </span><div>
Last visit two weeks ago on 02/05/18 for mammogram & bone density results from [facility] imaging on 01/08/18. Mammogram - normal 01/08/18. Bone density with osteoporosis on 01/08/18.<div>Discussed osteoporosis with pt. She notes that her mother & sister both have osteoporosis. Discussed taking both calcium & vitamin D supplement (Caltrate D, Os-Lamont D) 500-600mg bid to increase absorption. Weight-bearing exercise, such as walking. Will start Fosamax [...] remission. Is being evaluated to see if recurrence.
</div><div>Pt's mother with leukemia, SLE, and blood clots.
</div><div>Pt's daughter, mother, sister all have lupus. At last visit on 10/15/17, neg RM, RF, ESR.
</div><div>
</div><div>PMHx:
< /div><div>COPD - was on Breo in past. Smoked for 14yrs. Quit 13yrs ago.
</div ><div>Parkinson's - was on medication in past.
</div><div>Memory loss - trouble remembering things
</div><div>Restless legs - was on requip in past.< br></div><div>Hx of polyp of colon - saw Dr. Church, GI in 09/2017 - Due to update colonoscopy.
</div><div>Hx of hemorrhoids.
</div><div>Bipolar disorder - on multiple meds. 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
</div><div>Anxiety d/o.</div></div> Review of Systems:ROS as noted in the [...] active and alert, normal affect, normal mood Consultant Dietitian: Consultant Dietitian: present; Eyes: Lids and Conjunctivae: non-injected, no [...]
--- OUTSIDE RECORDS SUMMARY | 2019-05-27 15:42 | XMS REPORT | Encounter Summary ---
Author Organization Unknown Address [address] [place] [address] Phone [phone] Care Team Providers Care Soil Field Technician Name Role Phone Dr. Theresa Calixto 3 [phone] Jon Church MD 107 [phone] Frantz Causey MD 121 [phone] Cm Hunter MD 130 [phone] Reason for Visit Depressive disorder Instructions 1. Bipolar disorder Nuplazid 34 mg capsule bipolar disorder: care instructions learning about mood disorders 2. Depressive disorder citalopram 20 mg tablet 3. Body mass index 25-29 - overweight learning about healthy weight 4. Acute low back pain cyclobenzaprine 10 mg tablet Discussion Note: None recorded. Plan of Care Reminders Provider Appointments Return to Office on or around 05/18/2019 Theresa Calixto MD Lab None recorded. Referral None recorded. Procedures None recorded. Surgeries None recorded. Imaging None recorded. Medications Name Start Date alendronate 70 mg tablet Take 1 tablet every week by oral route. Take with 8oz of water on empty stomach. Stay upright. Aspir-81 twice a wk Breo Ellipta 100 mcg-25 mcg/dose powder for inhalation INHALE 1 PUFF BY MOUTH ONCE DAILY citalopram 20 mg tablet Take 1 tablet every day by oral route in the morning for 90 days. cyclobenzaprine 10 mg tablet Take 1 tablet every day by oral route as needed for 90 days. may be sedating ergocalciferol (vitamin D2) 1,250 mcg (50,000 unit) capsule TAKE ONE CAPSULE BY MOUTH ONCE A WEEK hydroxyzine pamoate 25 mg capsule Take 1 capsule every day by oral route at bedtime for 90 days. lisinopril 20 mg-hydrochlorothiazide 12.5 mg tablet TAKE 1 TABLET BY MOUTH ONCE DAILY. lorazepam 2 mg tablet Take 1 tablet 3 times a day by oral route as needed for 90 days. mirtazapine 15 mg tablet Take 1 tablet every day by oral route at bedtime for 90 days. naproxen 500 mg tablet Take 1 tablet twice a day by oral route as needed for 90 days. take with food Nuplazid 34 mg capsule Take 1 capsule every day by oral route in the morning for 90 days. omeprazole 40 mg capsule,delayed release Take 2 capsules every day by oral route. rosuvastatin 10 mg tablet Take 1 tablet every day by oral route at bedtime. Medications Administered None recorded. Vitals Height Weight BMI Blood Pressure 5 ft 7 in 191 lbs 29.9 kg/m2 138/88 mm[Hg] Results Lab Results None recorded. Allergies Code Code System Name Reaction Severity Status Onset 0 RxNorm Codeine Active 13566 RxNorm Gabapentin Hallucinations Severe Active Latex, Natural [...] 02/05/2018 Chronic Obstructive Lung Disease Active 02/26/2018 Fibromyalgia Active 01/27/2019 Hyperlipidemia Active Bipolar Disorder Active Anxiety Active Depressive Disorder Active Hypertensive Disorder Active Procedures Date Name Performed by Colonoscopy Information not available Colonoscopy Information not available Hysterectomy (Total) Information not available Partial Hysterectomy Information not available Tonsillectomy Information not available Caesarean Section Information not available Vaccine List Vaccine Type influenza, injectable, quadrivalent 12/22/2015 influenza, recombinant, quadrIvalent,injectable, preservative free 12/30/20180.5 mL influenza, unspecified formulation 11/10/2017 Tdap 08/12/2018 Social History Tobacco Smoking Status Former Smoker (1 PPD) Past Encounters 02/17/2019 Bipolar Disorder; Depressive Disorder; Body Mass Index 25-29 - Overweight; Acute Low Back Pain Theresa Calixto MD: [address] [place] [address], Ph. History of Present Illness Note:<div>63 yr old female here for follow up visit. </div><div>Has been doing well since the last visit 12/30/18. </div><div>Patient on Nuplazid through psychiatrist - needs refill to specialty pharmacy.</div><div>Dr. Preciado content manager and was started on gabapentin</div><div>Has an appt on Feb 20 Dr. Freeman, Nephrology for low GFR and renal insufficiency. Appt at 1pm on [facility].</div><div>Patient cleared by dr. Alcaraz for left middle finger injury and infection. Has stiffness and trouble bending the finger post injury. </div> <div>
</div><div>Previously: </div>63yo female presents for three-month follow-up visit. Last visit on 10/01/18. Since last visit, had f/u with hand surgeon, Dr Alcaraz on 10/07/18 and had another follow-up last Sunday on 12/24/18. Still with very limited flexion of left middle finger, despite PT. Is getting new splint tomorrow to try to improve flexibility - rtn visit in 6wks, pt hopes to avoid further surgery on left middle finger.<div>Pt is ambidextrous, but uses right hand for writing & eating.</div><div>Here today for medication refills & flu vaccine.</div><div>Next appt with rheum 01/23/19. Will have labs with Dr Tristan.</div><div>
</div><div>
</div><div><div>Pt with left third finger PIP joint cellulitits. Pt ended up admitted to hospital for surgery on left hand for infection of flexor tendon sheath. [facility]. Admitted on 08/22, surgery on 08/23, dismissed on 08/26/18. Needed IV Abx & seen by ID. Did not leave with PICC line. Dismissed on two antibiotics 2x/day for 10day course. Left middle finger still won't bend - is going to PT 2x/wk. Next appt with ortho, Dr Shawn Alcaraz is next week on 10/07/18.</div><div><div>Hx of left hand injury on Sunday, August 12, 2018. Pt was trying to pry open a jar at home with large old pair of scissors & they slipped & cut her on the left hand below the middle finger & left thumb. </div><div>
</div><div> Pt's brother had both kidney & bladder cancer at age 44 -had one kidney removed & part of bladder - he has been in remission. Is being evaluated to see if recurrence.
</div><div>Pt's mother with leukemia, SLE, and blood clots.
</div><div>Pt's daughter, mother, sister all have lupus. At last visit on 10/15/17, neg RM, RF, ESR.
</div><div>
</div><div>PMHx:
</div><div> COPD - was on Breo in past. Smoked for 14yrs. Quit 13yrs ago.
</div><div> Parkinson's - was on medication in past.
</div><div>Memory loss - trouble remembering things
</div><div>Restless legs - was on requip in past.
</div ><div>Hx of polyp of colon - saw Dr. Church, GI in 09/2017 - Due to update colonoscopy.
</div><div>Hx of hemorrhoids.
</div><div>Bipolar disorder - on multiple meds. 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
</div><div>Anxiety d/o.</div>< div>Osteoporosis - DEXA at [facility] on 01/08/18 with OP. Pt's mother & sister both have osteoporosis. On both calcium & vitamin D and Fosamax 70mg weekly. Repeat bone density in one year.
</div><div>Mammogram - normal 01/08/18. </div></div></div> Review of Systems:ROS as noted in the HPI Review of Systems Comprehensive Adult Problem ROS Reported By: Patient Constitutional: Constitutional: no significant weight change, no fatigue Eyes: Eyes: ; denies vision disturbances Cardiovascular: Cardiovascular: no chest pain, normal heart rate; no pedal edema Respiratory: Respiratory: no cough, no wheezing, no chest tightness, normal respiration Gastrointestinal: GI: no abdominal pain, no vomiting, no diarrhea, no constipation Musculoskeletal: Musculoskeletal: no soft tissue swelling, no joint swelling Skin: Skin: no rash Neurological symptoms: Neuro: no numbness, no tingling, no headache, no dizziness Psychiatric: Psych: no depression, no anxiety Physical Exam General Adult Exam (Female) Reported By: Patient Constitutional: General Appearance: healthy-appearing, well-developed, overweight. Level of Distress: NAD. Ambulation: ambulating normally Psychiatric: Mental Status: active and alert, normal mood, normal affect. Orientation: to time, to place, to person Lungs: Respiratory effort: no dyspnea. Auscultation: breath sounds normal, good air movement, no wheezing, no rales/crackles, no rhonchi Cardiovascular: Apical Impulse: not displaced. Heart Auscultation: RRR, normal S1, normal S2, no murmurs Abdomen: Bowel Sounds: normal. Inspection and Palpation: soft, non-distended, no tenderness, no guarding, no rebound tenderness, no masses, no CVA tenderness. Liver: non-tender, no hepatomegaly. Spleen: non-tender, no splenomegaly Musculoskeletal:: Joints, Bones, and Muscles: normal movement of all extremities. Extremities: no edema Neurologic: Gait and Station: normal gait, normal station Skin: Inspection and palpation: no rash
--- OUTSIDE RECORDS SUMMARY | 2019-05-27 15:42 | XMS REPORT | Encounter Summary ---
Author Organization Unknown Address [address] [place] [address] Phone [phone] Care Team Providers Care Repair Specialist Name Role Phone Dr. Theresa Calixto 3 [phone] Jon Church MD 107 [phone] Frantz Causey MD 121 [phone] Cm Hunter MD 130 [phone] Reason for Visit Hypertensive disorder; Anxiety; Depressive disorder; Chronic obstructive lung disease; Hyperlipidemia Instructions 1. Hypertensive disorder lisinopril 20 mg-hydrochlorothiazide 12.5 mg tablet 2. Hyperlipidemia high cholesterol: care instructions rosuvastatin 10 mg tablet 3. Bipolar disorder mirtazapine 15 mg tablet 4. Depressive disorder citalopram 20 mg tablet 5. Body mass index 30+ - obesity body mass index: care instructions learning about healthy weight 6. Anxiety lorazepam 2 mg tablet hydroxyzine pamoate 25 mg capsule 7. Osteoporosis 8. Acute low back pain cyclobenzaprine 10 mg tablet naproxen 500 mg tablet 9. Vitamin D deficiency ergocalciferol (vitamin D2) 1,250 mcg (50,000 unit) capsule 10. Chronic obstructive lung disease 11. Influenza vaccination Flublok Quad [id number] (PF) 180 mcg (45 mcg x 4)/0.5 mL IM syringe 12. Fibromyalgia handicap placard Discussion Note: None recorded. Plan of Care Reminders Provider Appointments Est Patient 02/17/2019 3:15PM Theresa Calixto MD Lab None recorded. Referral [...] take with food Nuplazid 34 mg capsule TAKE 1 CAPSULE BY MOUTH ONE TIME A DAY. omeprazole 40 mg capsule,delayed release Take 2 capsules every day by oral route. rosuvastatin 10 mg tablet Take 1 tablet every day by oral route at bedtime. triamcinolone acetonide 0.1 % topical cream APPLY A THIN LAYER TO THE AFFECTED AREA(S) BY TOPICAL ROUTE 2 TIMES PER DAY Medications Administered None recorded. Vitals Height Weight BMI Blood Pressure 5 ft 7 in 196 lbs 30.7 kg/m2 128/82 mm[Hg] Results Lab Results None recorded. Allergies Code Code System Name Reaction Severity Status Onset 2670 RxNorm Codeine Active 76060 RxNorm Gabapentin Hallucinations Severe Active Latex, Natural [...] Status Former Smoker (1 PPD) Past Encounters 12/30/2018 Hypertensive Disorder; Hyperlipidemia; Bipolar Disorder; Depressive Disorder; Body Mass Index 30+ - Obesity; Anxiety; Osteoporosis; Acute Low Back Pain; Vitamin D Deficiency; Chronic Obstructive Lung Disease; Influenza Vaccination; Fibromyalgia Theresa Calixto MD: [address] [place] [address], Ph. History of Present Illness Note:63yo female presents for three-month follow-up visit. Last [...] eating.</div><div>Here today for medication refills & flu vaccine.</div><div >Next appt with rheum 01/23/19. Will have labs with Dr Tristan.</div><div>
< /div><div>Previously:</div><div><div>Pt with left third finger PIP joint cellulitits. [...] the middle finger & left thumb. </div><div>
</div><div>Pt's brother had both kidney & bladder [...] past.
</div><div>Memory loss - trouble remembering things
< /div><div>Restless legs - was on requip in past.
</div><div>Hx of polyp of colon - saw Dr. Church, GI in 09/2017 - Due to update colonoscopy.
</div><div >Hx of hemorrhoids.
</div><div>Bipolar disorder - on multiple meds. 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
</div><div>Anxiety d/o.</div><div>Osteoporosis - DEXA at [facility] on 01/08/18 with OP. Pt's mother & [...] shortness of breath Gastrointestinal: Gastrointestinal: no abdominal pain Musculoskeletal: Musculoskeletal: swelling in the extremities Integumentary: Skin: laceration; left middle finger - no signs of infection today. Well-healing scar Neurologic: Neurologic: no loss of consciousness, no headaches Psychiatric: Psych: no depression, no alcohol abuse, no anxiety, no suicidal thoughts Physical Exam General Adult Exam (Female) Reported By: Patient Constitutional: General Appearance: healthy-appearing, well-nourished, well-developed. Level of Distress: NAD. Ambulation: ambulating normally Psychiatric: Mental Status: active and alert, normal mood, normal affect Eyes: Lids and Conjunctivae: non-injected, no discharge, no pallor. Pupils: PERRLA. EOM: EOMI. Sclerae: non-icteric Lungs: Respiratory effort: no dyspnea. Auscultation: breath sounds normal, good air movement, no wheezing, no rales/crackles Cardiovascular: Heart Auscultation: RRR, normal S1, normal S2, no murmurs. Neck vessels: no carotid bruits Abdomen: Bowel Sounds: normal. Inspection and Palpation: soft Musculoskeletal:: Motor Strength and Tone: normal motor strength. Joints, Bones, and Muscles: no bony abnormalities, no contractures, no malalignment, limited ROM, tenderness. Extremities: no edema Neurologic: Gait and Station: normal gait. Sensation: grossly intact Skin: Inspection and palpation: no rash, lesion; Decreased ROM at base of left 3rd finger
--- OUTSIDE RECORDS SUMMARY | 2019-05-27 15:42 | XMS REPORT | Encounter Summary ---
Author Organization Unknown Address [address] [place] [address] Phone [phone] Care Team Providers Care Market Research Interviewer Name Role Phone Dr. Theresa Calixto 3 [phone] Jon Church MD 107 [phone] Cm Hunter MD 130 [phone] Reason for Visit Left hand pain Instructions 1. Cellulitis of left hand hand surgery referral dermatology referral ceftriaxone 1 gram solution for injection 2. Body mass index 25-29 - overweight learning about healthy weight Discussion Note: None recorded. Plan of Care Reminders Provider Appointments Est Patient 12/30/2018 1:30PM Theresa Calixto MD Lab None recorded. Referral Hand Surgery Referral 08/20/2018 Alba Jo MD Dermatology Referral 08/20/2018 Jean Gupta MD Procedures None recorded. Surgeries None recorded. Imaging None recorded. Medications Name Start Date alendronate 70 mg tablet Take 1 tablet every week by oral route. Take with 8oz of water on empty stomach. Stay upright. Aspir-81 twice a wk Breo Ellipta 100 mcg-25 mcg/dose powder for inhalation Inhale 1 puff every day by inhalation route. ceftriaxone 1 gram solution for injection Take 1 g by injection route. citalopram 20 mg tablet Take 1 tablet every day by oral route in the morning for 30 days. clindamycin HCl 150 mg capsule Take 2 capsules every 6 hours by oral route. cyclobenzaprine 10 mg tablet Take 1 tablet every day by oral route as needed for 30 days. may be sedating ergocalciferol (vitamin D2) 50,000 unit capsule TAKE ONE CAPSULE BY MOUTH ONCE A WEEK hydroxyzine pamoate 25 mg capsule TAKE 1 CAPSULE BY MOUTH TWICE DAILY ibuprofen 800 mg tablet Take 1 tablet 3 times a day by oral route as needed. take with food, not on empty stomach lisinopril 20 mg-hydrochlorothiazide 12.5 mg tablet TAKE 1 TABLET BY MOUTH ONCE DAILY. lorazepam 2 mg tablet TAKE 1 TABLET [...] TAKE ONE TABLET BY MOUTH ONCE DAILY tramadol 50 mg tablet Take 1 tablet every 12 hours by oral route as needed for 7 days. triamcinolone acetonide 0.1 % topical cream APPLY A THIN LAYER TO THE AFFECTED AREA(S) BY TOPICAL ROUTE 2 TIMES PER DAY Medications Administered Name Date ceftriaxone 1 gram solution for injection Take 1 g by injection route. [id number]:00 Vitals Height Weight BMI Blood Pressure 5 ft 7 in 184.4 lbs 28.9 kg/m2 110/70 mm[Hg] Lab Results None recorded. Allergies Code Code System Name Reaction Severity Status Onset 2670 RxNorm Codeine Active 01695 RxNorm Gabapentin Hallucinations Severe Active Latex, Natural [...] Disorder Active Procedures Date Name Performed by 07/16/2018 Colonoscopy Information not available 07/24/2013 Colonoscopy Information not available Hysterectomy (Total) Information not available Partial Hysterectomy Information not available Tonsillectomy Information not available Caesarean Section Information not available Vaccine List Vaccine Type influenza, injectable, quadrivalent 12/22/2015 influenza, unspecified formulation 11/10/2017 Tdap 08/12/2018 Social History Smoking Status Former Smoker (1 PPD) Past Encounters 08/20/2018 Cellulitis of Left Hand; Body Mass Index 25-29 - Overweight Theresa Calixto MD: [address] [place] [address], Ph. History of Present Illness Note:63yo female presents for evaluation of left hand injury on Sunday, August 12, 2018. Pt was trying to pry open a jar at home with large old pair of scissors & amp; they slipped & cut her on the left hand below the middle finger & left thumb. Lots of bleeding. Pt went to [facility], where she had a tetanus shot & got one stitch at middle finger & two stitches on left thumb. Did not have wound fully washed & was dismissed without Abx. A few days later, last Sunday08/16/18 pt had swelling of entire left hand. Went back to [facility] on Sunday and was given clindamycin 300mg q6hrs. Had blood culture & hand XR. Given shot of clindamycin. No blood or bone infection, per pt. Has been taking antibiotic since Sunday morning. Also using Bactroban on lesion. Not eating well, but trying to eat piece of toast with Abx. Ate sandwich yesterday & amp; today.<div>Is here today for concerned of ongoing infection in left middle finger.</div><div>No fever measured at home, but cold & sweats.
<div> Swelling is much improved in all fingers on left hand EXCEPT the middle finger. Left middle finger still with warmth, redness, swelling, pain. Using Tylenol wit h pain. Only took one tramadol for pain. Mainly using Extra-Strength Tylenol & amp; ibuprofen 800mg.</div></div><div>Developed yellow area with drainage at base of left middle finger last night. Tender. See photo.</div><div>Pt is right handed. Sensation intact in distal middle finger, but limited ROM due to swelling.</div> Review of Systems:ROS as noted in the HPI Review of Systems Comprehensive General Adult ROS Reported By: Patient Constitutional: Constitutional: no fever Eyes: Eyes: no vision change Cardiovascular: Cardiovascular: no chest pain Respiratory: Respiratory: no cough, no wheezing, no shortness of breath Gastrointestinal: Gastrointestinal: no abdominal pain Musculoskeletal: Musculoskeletal: swelling in the extremities Integumentary: Skin: laceration; two sutures in left thumb, one in left middle finger Neurologic: Neurologic: no loss of consciousness, no headaches Psychiatric: Psych: no depression, no alcohol abuse, no anxiety, no suicidal thoughts Physical Exam General Adult Exam (Female) Reported By: Patient Mud Mixer Helper: Mud Mixer Helper: present; Constitutional: General Appearance: healthy-appearing, well-nourished, well-developed. Level [...] no malalignment, limited ROM, tenderness. Extremities: edema Neurologic: Gait and Station: normal gait. Sensation: grossly intact Skin: Inspection and palpation: no rash, lesion; see photo below of left hand with redness, warmth, swelling at base of left 3rd finger around site of suture/laceration
--- OUTSIDE RECORDS SUMMARY | 2019-05-27 15:42 | XMS REPORT | Encounter Summary ---
Author Organization Unknown Address [address] [place] [address] Phone [phone] Care Team Providers Care Model Builder Display Name Role Phone Dr. Theresa Calixto 3 [phone] Jon Church MD 107 [phone] Cm Hunter MD 130 [phone] Reason for Visit Hypertensive disorder; Anxiety; Depressive disorder; urinary issues/incontinence Instructions 1. Bipolar disorder mirtazapine 15 mg tablet 2. Benign essential hypertension CBC w/ auto diff CMP, serum or plasma TSH, serum or plasma 3. Hyperlipidemia high cholesterol: care instructions lipid panel, serum 4. Body mass index 25-29 - overweight learning about healthy weight 5. Overweight 6. Acute low back pain naproxen 500 mg tablet cyclobenzaprine 10 mg tablet 7. Depressive disorder citalopram 20 mg tablet 8. Anxiety lorazepam 2 mg tablet hydroxyzine pamoate 25 mg capsule 9. Vitamin D deficiency vitamin D, 25-hydroxy, total, serum 10. Hepatitis C screening hepatitis C virus RNA, quant, PCR, serum or plasma 11. Acute urinary tract infection urinalysis, dipstick 12. Prediabetes HbA1c (hemoglobin A1c), blood Discussion Note: None recorded. Plan of Care Reminders Provider Appointments Est Patient 12/30/2018 1:30PM Theresa Calixto MD Lab Hepatitis C Virus RNA, Quant, PCR, Serum or Plasma 10/01/2018 [facility] CBC W/ Auto Diff 10/01/2018 [facility] CMP, Serum or Plasma 10/01/2018 [facility] Lipid Panel, Serum 10/01/2018 [facility] Urinalysis, Dipstick 10/01/2018 [facility] ([facility] Secretary HbA1C (Hemoglobin a1C), Blood 10/01/2018 [facility] Vitamin D, 25-Hydroxy, Total, Serum 10/01/2018 [facility] TSH, Serum or Plasma 10/01/2018 [facility] Referral None recorded. Procedures None recorded. Surgeries None recorded. Imaging None recorded. Medications Name Start Date alendronate 70 mg tablet Take 1 tablet every week by oral route. Take with 8oz of water on empty stomach. Stay upright. Aspir-81 twice a wk Breo Ellipta 100 mcg-25 mcg/dose powder for inhalation Inhale 2 puffs every day by inhalation route. citalopram 20 [...] lorazepam 2 mg tablet Take 1 tablet every day [...] BMI Blood Pressure 5 ft 7 in 186.8 lbs 29.3 kg/m2 (1) 178/100 mm[Hg] (2) 172/102 mm[Hg] Lab Results Date Name Specimen Result Interpretation Description Value Range Status Address 10/01/2018 Urinalysis, Dipstick Color Color shlomo [facility] ([facility]) Secretary: [address] [place] Color Appearance clear [facility] ([facility]) Secretary: [address] [place] Color Glucose negative [facility] ([facility] Secretary: [address] [place] Color Bilirubin small [facility] ([facility]) Secretary: [address] [place] [address] St., [place] Color Ketones trace [facility] ([facility]) Secretary: [address] [place] Color Specific Zillah 1.030 [facility] ([facility]) Secretary: [address] [place] Color Blood negative [facility] ([facility]) Secretary: [address] [place] Color PH 5.5 [facility] ([facility] Secretary: [address] [place] Color Protein trace [facility] ([facility]) Secretary: [address] [place] Color Urobilinogen 0.2 [facility] ([facility]) Secretary: [address] [place] Color Nitrites negative [facility] ([facility]) Secretary: [address] [place] Color Leukocytes negative [facility] ([facility]) Secretary: [address] [place] Allergies Code Code System Name Reaction Severity Status Onset 2670 RxNorm Codeine Active 20958 RxNorm Gabapentin Hallucinations Severe Active Latex, Natural [...] Status Former Smoker (1 PPD) Past Encounters 10/01/2018 Bipolar Disorder; Benign Essential Hypertension; Hyperlipidemia; Body Mass Index 25-29 - Overweight; Overweight; Acute Low Back Pain; Depressive Disorder; Anxiety; Vitamin D Deficiency; Hepatitis C Screening; Acute Urinary Tract Infection; Prediabetes Theresa Calixto MD: [address] [place] [address], Ph. History of Present Illness Note:63yo female presents for follow-up visit. Last visit on 08/20/18 for left third finger PIP joint cellulitits. Pt [...] Dr Shawn Alcaraz is next week on 10/07/18.<div>Here today for medication refills and labs.</div><div><div>Pt without c/o today. No SOB or CP. No Lightheadedness. Patient is taking medicine consistently. Not having any issues with them. </div> </div><div>Previously:</div><div>Hx of left hand injury on Sunday, August [...] from Parkinson's
</div><div>Anxiety d/o.</div><div>Osteoporosis - DEXA at [facility] on 01/08/18 with OP. Pt's mother & sister both have osteoporosis. On both calcium & vitamin D and Fosamax 70mg weekly. Repeat bone density in one year.
</div><div>Mammogram - normal 01/08/18. </div> Review of Systems:ROS as noted in the [...] General Adult Exam (Female) Reported By: Patient Wire Stretcher: Wire Stretcher: present; Constitutional: General Appearance: healthy-appearing, well-nourished, well-developed. [...]
[2019-05-27 16:10] LABS: BASOPHILS # (AUTO) 0.1 (0.0-0.1); BASOPHILS % 0.9 % (0.0-1.0); EOSINOPHILS # (AUTO) 0.1 (0.0-0.4); HEMATOCRIT 36.4 % (34.2-44.1); HEMOGLOBIN 11.7 g/dL (12.0-16.0); LYMPHOCYTES # (AUTO) 1.4 (1.0-3.2); LYMPHOCYTES % 19.9 % (18.0-39.1); MEAN CORPUSCULAR HGB CONC 32.1 g/dL (31-35); MEAN CORPUSCULAR VOLUME 90.1 fL (81-99); MONOCYTES # (AUTO) 0.4 (0.2-0.8); MONOCYTES % 6.3 % (4.4-11.3); NEUTROPHILS % 71.6 % (38.7-80.0); PLATELET COUNT 280 x10e3/uL (140-360); RED BLOOD COUNT 4.04 x10e6/uL (3.6-5.1); RED CELL DISTRIBUTION WIDTH 14.2 % (11.7-14.4)
[2019-05-27 16:28] LABS: ALANINE AMINOTRANSFERASE 20 IU/L (0-55); ALBUMIN 4.2 g/dL (3.5-5.0); ALBUMIN/GLOBULIN RATIO 1.2 (0.8-2.0); ALKALINE PHOSPHATASE 68 IU/L (40-150); ANION GAP 17.2 mmol/L (8-16); BLOOD UREA NITROGEN 5 mg/dL (7-26); BUN/CREATININE RATIO 6 (6-25); CARBON DIOXIDE 21 mmol/L (22-29); CHLORIDE 104 mmol/L (98-107); CREATINE KINASE 54 IU/L (29-168); CREATININE, SERUM 0.82 mg/dL (0.57-1.11); EST GLOMERULAR FILTRATION RATE > 60 ML/MIN (60-); GLUCOSE 90 mg/dL (74-118); POTASSIUM 4.2 mmol/L (3.5-5.1); SODIUM 138 mmol/L (136-145)
[2019-05-27] MEDS ORDERED: OMEPRAZOLE40 MG PO (17:54)
[2019-05-27] MEDS ORDERED: ROSUVASTATIN CA10 MG PO (17:54)
[2019-05-27] MEDS ORDERED: CITALOPRAM HBR20 MG PO (17:54)
[2019-05-27] MEDS ORDERED: HYDROXYZINE PAM25 MG PO (17:54)
[2019-05-27] MEDS ORDERED: MAG-OXIDE400 MG PO (17:54)
[2019-05-27] MEDS ORDERED: LISINOPRIL-HCT1 EACH PO (17:54)
[2019-05-27] MEDS ORDERED: BREO ELLIPTA 11 EACH IH (17:54)
[2019-05-27] MEDS ORDERED: GABAPENTIN100 MG PO (17:54)
[2019-05-27] MEDS ORDERED: SUCRALFATE1 GM PO (17:54)
[2019-05-27] MEDS ORDERED: VITAMIN (17:54)
[2019-05-27 18:15] VITALS: BP 135/98
--- NOTE | 2019-05-27 19:05 | Diagnostic Imaging Report ---
EXAM: CHEST SINGLE (PORTABLE) DATE: 05/27/2019 4:00 PM INDICATION: ^cp ^[id number] ^[id number] COMPARISON: None FINDINGS: The examination is compromised by underpenetration. Lines and tubes: None Heart size normal for projection. No focal pulmonary opacity, pleural effusion or pneumothorax. A linear density at the left lung base likely represents atelectasis. Upper abdomen unremarkable. No acute bony abnormality is identified. IMPRESSION: No evidence for acute disease. Signed by: Dr. Anthony Hawkins M.D. on 05/27/2019 7:01 PM
[2019-05-27] MEDS ORDERED: ACETAMINOPHEN 325 MG TAB PO PRN (19:30)
[2019-05-27] MEDS ORDERED: MELATONIN 5 MG TABLET PO PRN (19:30)
[2019-05-27] MEDS ORDERED: ONDANSETRON HCL INJ 2MG/ML 2ML 2 MG/ML VIAL IV PRN (19:30)
[2019-05-27] MEDS ORDERED: HYDRALAZINE HCL 20 MG/ML VIAL IV PRN (19:30)
[2019-05-27] MEDS ORDERED: HYDROCODONE/APAP 5MG-325MG TAB PO PRN (19:30)
[2019-05-27] MEDS ORDERED: DICYCLOMINE HCL20 MG PO (19:44)
[2019-05-27] MEDS ORDERED: CYCLOBENZAPRINE10 MG PO (19:44)
[2019-05-27] MEDS ORDERED: MECLIZINE HCL12.5 MG PO (19:44)
[2019-05-27] MEDS ORDERED: MIGRAINE RELIE1 EACH PO (19:44)
[2019-05-27] MEDS ORDERED: HYDROXYZINE HCL25 MG PO (19:44)
[2019-05-27] MEDS ORDERED: MIRTAZAPINE15 MG PO (19:44)
[2019-05-27] MEDS ORDERED: VITAMIN D22000 UNIT PO (19:44)
--- NOTE | 2019-05-27 19:56 | NUR ---
Spoke with Dr Lynne regarding new consult, Will see patient.
[2019-05-27] MEDS ORDERED: MECLIZINE HCL 12.5 MG TAB PO PRN (20:00)
[2019-05-27] MEDS ORDERED: NON-FORMULARY MEDICATION (Lorazepam (Ativan) 2 MG) PO PRN (20:00)
[2019-05-27] MEDS ORDERED: DICYCLOMINE HCL 20 MG TAB PO PRN (20:00)
--- NOTE | 2019-05-27 20:27 | History and Physical ---
CHIEF COMPLAINT: Chest pain. HISTORY OF PRESENT ILLNESS: A 63-year-old female patient with anxiety, hypertension, depression, history of hypomagnesemia in the past, comes into the ED with complaints of chest pain, has been ongoing x1 day. The patient reports that it is substernal in nature, radiates to her left chest, shoulder, and arm. She reports that the pain was worse and she went to her PCP today, in which she had an EKG that was found to be normal, but due to the chest pain, the physician called 911 and the patient was brought into the ED for further evaluation and management. While here, the patient is doing well. She reports she felt much better after she received some nitroglycerin and some aspirin in the EMS ride. She is currently chest pain-free during my evaluation. She denies any associated vomiting, but does report having some nausea. No fever, cough, or congestion. No recent travel. The patient is seen and evaluated at bedside on the medical floor. She is currently doing well. She is chest pain-free. Vital signs are stable during my evaluation. Cardiology has been consulted. REVIEW OF SYSTEMS: Pertinent positive: Chest pain, nausea. The rest of the 14-point review of systems have been reviewed with the patient and are negative. ALLERGIES: NO KNOWN DRUG ALLERGIES. HOME MEDICATIONS: Still pending. Please see medication reconciliation form once available PAST MEDICAL HISTORY: Hypertension, morbid obesity, depression, anxiety, and peripheral neuropathy. PAST SURGICAL HISTORY: Reports none. FAMILY HISTORY: Hypertension and diabetes. SOCIAL HISTORY: No drugs. No alcohol. Does not smoke. Good social support. PHYSICAL EXAMINATION: VITAL SIGNS: Temperature is 98.5, pulse 92, respiratory rate is 22, blood pressure 135/98, and saturating 100% on room air. GENERAL: Not in acute distress. Alert and oriented x3. Cooperative on examination. HEENT: Head; normocephalic, atraumatic. Eyes; pupils are equal, round, and reactive to light bilaterally. Extraocular movements intact bilaterally. Throat; no evidence of erythema or exudates in the posterior pharynx. Has poor dentition. NECK: Supple. Good range of motion. PULMONARY: Clear to auscultation bilaterally. No wheezing, no rales, no rhonchi, no crackles appreciated. CARDIOVASCULAR: Positive S1 and S2. No murmurs, rubs, or gallops appreciated. ABDOMEN: Soft, nondistended, and nontender to palpation. Bowel sounds present. MUSCULOSKELETAL: Strength is 5/5 throughout. No evidence of any muscle deficits on examination. No weakness appreciated. NEUROLOGIC: Cranial nerves 2 through 12 grossly intact. No evidence of any neurological deficits on exam. SKIN: Intact. Warm to touch. Good cap refill. PSYCHIATRIC: Normal affect and mood. EXTREMITIES: No edema. Good range of motion throughout. LABORATORY DATA: Show white count 7, hemoglobin 11.7, hematocrit is 36.4, and platelets of 280. Chemistry; sodium 138, potassium 4.2, chloride 104, bicarb 21, anion gap of 17, BUN is 5, creatinine is 0.82, and calcium is 10. Total bilirubin is 0.4. LFTs within normal range. Troponin #1 is negative. CK-MB 1.4. Albumin is 4.2. MICROBIOLOGY: None. IMAGING STUDIES: Chest x-ray, no evidence for acute disease. IMPRESSION: 1. Chest pain, rule out acute coronary syndrome. 2. Hypertension. 3. Hyperlipidemia. 4. History of depression and anxiety. PLAN: At this time, trend troponins. Aspirin and statin have been initiated and Cardiology has been consulted. A 2D echo has been ordered. Cardiac enzyme x1 is negative. EKG showed no acute findings. Await Cardiology recommendations. Resume same antihypertensive medications once they are available p.r.n. hydralazine. The patient has a history of anxiety and depression. We will be happy to restart those medications if the patient is stable and doing very well. She reports magnesium deficiency. I will go ahead and order a stat magnesium level now to see where her magnesium level is, in order for me to restart her magnesium. Still awaiting on medications to be provided in the computer for reconciliation. PT/OT evaluation. Lovenox for DVT prophylaxis. Otherwise, she is currently chest pain-free with no complaints. Cardiology has been consulted for further management and care. MD DEXTER Prasad/JOANNAL /[id number]
--- NOTE | 2019-05-27 20:45 | NUR ---
Patient has Ativan 2 mg tablets in room. Educated patient on importance of locking up medication and when spouse comes in morning have merchandise pickup/receiving associate medication to take home. Patient verbalized understanding. Bottle removed for room and taken to pharmacy for lock up. Receipt placed on chart and will informed morning nurse of medication and location. Addendum: 05/27/19 at 2051 by Chaya Henry RN receipt number [id number]
--- NOTE | 2019-05-27 20:48 | NUR ---
Results for Magnesium level reported to Dr Turner. Mag level 2.2. New order to repeat level in am.
[2019-05-27 20:55] VITALS: BP 159/90
[2019-05-27 21:00] VITALS: BP 159/90
[2019-05-27] MEDS ORDERED: ATORVASTATIN 20 MG TAB PO SCH (21:00)
[2019-05-27] MEDS ORDERED: MIRTAZAPINE 15 MG TAB PO SCH (21:00)
[2019-05-27] MEDS: SODIUM CHLORIDE 0.9% 1000ML 1,000 ML IV SCH (21:57)
[2019-05-27] MEDS: LORAZEPAM 1 MG TAB PO PRN (21:57)
[2019-05-28] VITALS (7 sets, daily range): BP systolic 117–150; BP diastolic 68–89
[2019-05-28 00:07] LABS: CREATINE KINASE MB 1.3 ng/mL (0-5.0)
[2019-05-28 05:11] LABS: BASOPHILS % 0.7 % (0.0-1.0); EOSINOPHILS # (AUTO) 0.2 (0.0-0.4); EOSINOPHILS % 2.7 % (0.0-6.0); HEMATOCRIT 35.1 % (34.2-44.1); LYMPHOCYTES # (AUTO) 1.5 (1.0-3.2); LYMPHOCYTES % 27.7 % (18.0-39.1); MEAN CORPUSCULAR HEMOGLOBIN 28.7 pg (28-32); MEAN CORPUSCULAR HGB CONC 31.3 g/dL (31-35); MEAN CORPUSCULAR VOLUME 91.6 fL (81-99); MONOCYTES # (AUTO) 0.6 (0.2-0.8); MONOCYTES % 10.6 % (4.4-11.3); NEUTROPHILS # (AUTO) 3.2 (2.1-6.9); NEUTROPHILS % 58.1 % (38.7-80.0); PLATELET COUNT 225 x10e3/uL (140-360); RED BLOOD COUNT 3.83 x10e6/uL (3.6-5.1); RED CELL DISTRIBUTION WIDTH 14.2 % (11.7-14.4)
[2019-05-28 05:30] LABS: ANION GAP 13.4 mmol/L (8-16); BLOOD UREA NITROGEN 7 mg/dL (7-26); BUN/CREATININE RATIO 9 (6-25); CALCIUM 9.3 mg/dL (8.4-10.2); CARBON DIOXIDE 23 mmol/L (22-29); CHLORIDE 106 mmol/L (98-107); CREATININE, SERUM 0.82 mg/dL (0.57-1.11); EST GLOMERULAR FILTRATION RATE > 60 ML/MIN (60-); GLUCOSE 90 mg/dL (74-118); POTASSIUM 3.4 mmol/L (3.5-5.1); SODIUM 139 mmol/L (136-145)
[2019-05-28 05:53] LABS: CHOL/HDL RATIO 4.2 (3.0-3.6)
--- NOTE | 2019-05-28 07:14 | NUR ---
Bedside report and round completed with oncoming nurse. Patient in bed with call light within reach. No issues or concerns noted.
[2019-05-28] MEDS ORDERED: PANTOPRAZOLE SOD 40 MG TABEC PO SCH (07:30)
[2019-05-28] MEDS: PANTOPRAZOLE SOD 40 MG TABEC PO SCH ×2 (07:30→16:29)
--- NOTE | 2019-05-28 07:31 | NUR ---
Received patient this morning and no chest complaints, no distress, seen this morning by cardiology and patient will be having a stress test, NPO, will obtain consent.
[2019-05-28 07:58] LABS: CREATINE KINASE MB 1.1 ng/mL (0-5.0)
[2019-05-28] MEDS ORDERED: CITALOPRAM HYDROBROMIDE 20 MG TAB PO SCH (09:00)
[2019-05-28] MEDS ORDERED: CRESTOR 10MG PO SCH (09:00)
[2019-05-28] MEDS ORDERED: HYDROCHLOROTHIAZIDE 25 MG TAB PO SCH (09:00)
[2019-05-28] MEDS ORDERED: VILANTEROL INH SCH (09:00)
[2019-05-28] MEDS ORDERED: GABAPENTIN 100 MG CAP PO SCH (09:00)
[2019-05-28] MEDS ORDERED: LISINOPRIL 20 MG TAB PO SCH (09:00)
[2019-05-28] MEDS ORDERED: FLUTICASONE INH SCH (09:00)
[2019-05-28] MEDS ORDERED: NON-FORMULARY MEDICATION (Rosuvastatin Calcium 1 TAB) PO SCH (09:00)
[2019-05-28] MEDS ORDERED: ASPIRIN 325 MG TAB PO SCH (09:00)
--- NOTE | 2019-05-28 11:01 | NUR ---
Orders per Jose SECURITY CONTROLS ASSESSOR with cardiology to cancel stress test and this will be done as out patient at the office.
[2019-05-28] MEDS: SODIUM CHLORIDE 0.9% 1000ML 1,000 ML IV SCH (11:09)
--- NOTE | 2019-05-28 12:44 | Consultation ---
DATE OF CONSULTATION: 05/28/2019 REASON FOR CONSULTATION: Chest pain. CHIEF COMPLAINT: Chest pain. HISTORY OF PRESENT ILLNESS: This is a 63-year-old female with history of hypertension, hyperlipidemia, anxiety, depression, morbid obesity, COPD, ex-smoker, peripheral neuropathy, and reflux disease. The patient presents to [facility] ER with complaints of chest pain. Cardiology was consulted. The patient is seen in room this a.m. with no acute distress. Reports on Sunday, had an episode of chest discomfort, pressure, tightness in nature, lasting about one hour, relieved on its own. However, on Sunday, the patient reports a similar episode of chest pain, shortness of breath, and heaviness sensation radiating into her left shoulder. Went to see her PCP in which the patient was advised to go to the ER, so EMS was called and the patient was brought to ER for further management. Cardiac enzymes negative x2 thus far. EKG with nonspecific changes. Currently, the patient is chest pain-free. Long discussion with the patient regarding treatment options. The patient wishes to proceed with stress test. PAST MEDICAL HISTORY: Hypertension, hyperlipidemia, COPD/ex-smoker, anxiety, depression, morbid obesity, peripheral neuropathy, reflux, and hemorrhoids. PAST SURGICAL HISTORY: Right shoulder, tonsillectomy, , and left hand surgery. SOCIAL HISTORY: She is . She is unemployed. No alcohol use. Positive for tobacco use, however, quit in 1996, history of one-pack per day for 20 years. FAMILY HISTORY: Mother is , a history of leukemia. Father, he is alive, however, unknown history. ALLERGIES: NO KNOWN ALLERGIES. MEDICATIONS: Citalopram 20 mg daily, cyclobenzaprine 10 mg daily, Breo Ellipta 100-25 inhaler daily, gabapentin 100 mg daily, lisinopril/hydrochlorothiazide 10-12.5 daily, Ativan 2 mg p.o. t.i.d. p.r.n., magnesium oxide 400 mg one tablet p.o. b.i.d., meclizine 25 mg p.o. p.r.n., omeprazole 40 mg p.o. daily, Rosuvastatin 10 mg p.o. daily, and Carafate 1 g p.o. with meals. REVIEW OF SYSTEMS: GENERAL: Denies any weight changes, fatigue, weakness, fevers, chills, or night sweats. SKIN: No rashes or sores. HEENT: Positive for nausea. Denies any vomiting, vision changes, blurred vision, double vision, epistaxis, sore throat, swollen neck, or bleeding gums. CARDIAC: Positive for chest pain as above. Positive for dyspnea on exertion. No orthopnea, PND, or lower extremity edema. RESPIRATORY: Positive for intermittent shortness of breath. Positive for dry cough. Denies any wheezing or hemoptysis. GI: Reports good appetite. No vomiting. However, positive nausea during chest pain episodes. Denies any diarrhea or constipation. Positive for hemorrhoids. Denies any abdominal pain. URINARY: Denies any frequency, urgency, dysuria, or hematuria. VASCULAR: Denies any lower extremity edema or claudication. MUSCULOSKELETAL: Positive for generalized joint pains, back pains, and also numbness and tingling in lower extremities. NEUROLOGIC: Denies any weakness, paralysis, fainting, blackouts, or seizures. HEMATOLOGY: Denies any anemia or easy bruising. ENDOCRINE: Denies any heat or cold intolerance, polyuria, polydipsia, or polyphagia. PHYSICAL EXAMINATION: VITAL SIGNS: Height 67 inches, temperature 97.0, pulse 88, respiratory rate 18, blood pressure 117/74, and pulse ox 95% on room air. GENERAL: Appears stated age, reliable informant, in no acute distress at this time. SKIN: No rashes or bruises noted. HEENT: Normocephalic. Pupils are equal and reactive. Extraocular movement intact. Trachea midline. No JVD. No carotid bruits. Oral mucosa pink. HEART: Regular rate and rhythm. No murmurs or clicks noted. PMI about 4th and 5th intercostal space. LUNGS: Bilateral breath sounds clear to auscultation. Diminished airway entry and exit. ABDOMEN: Soft, nontender, and nondistended. No organomegaly noted. MUSCULOSKELETAL: 5/5 muscle strength throughout. No lower extremity edema/swelling noted. VASCULAR: +2 radial pulses bilaterally, +1 DP/TP pulses bilaterally. NEUROLOGIC: Cranial nerves 2 through 12 seem intact. LABORATORY DATA: White count of 5, hemoglobin 11, hematocrit 35, and platelets 225. Chemistry; sodium 139, potassium 3.4, chloride 106, BUN 7, and creatinine 0.8. A1c 5.1. Magnesium 1.8. Troponin 0.02, next 0.01. LDL 81 and HDL 33. TSH 1. Chest x-ray showing no acute abnormalities. EKG; sinus rhythm with nonspecific ST changes. ASSESSMENT: 1. Chest pain. 2. Hypertension. 3. Hyperlipidemia. 4. Chronic obstructive pulmonary disease/ex-smoker. 5. Anxiety/depression. PLAN: The patient presents to [facility] ER with complaints of chest pain with mixed features. Negative cardiac enzymes x2 thus far. Currently, the patient is chest pain-free and comfortable. Long discussion with the patient regarding ischemic evaluation and the patient wishes to proceed with nuclear stress test at this time. We will set up for nuclear stress test this a.m. Continue the patient's antiplatelet/statin therapy. Echo to evaluate heart function and structure. We will continue to monitor and further recommendations post ischemic evaluation. Thank you very much for this consult. Dictated by Jose Bhagat NP Antony Lynne MD DC/MODL /[id number]
[2019-05-28] MEDS: LORAZEPAM 1 MG TAB PO PRN (16:29)
--- NOTE | 2019-05-28 17:38 | NUR ---
Episode of anxiety, medicated as per orders, no distress, no chest pains, tolerated dinner, will monitor.
--- NOTE | 2019-05-28 19:00 | NUR ---
RECEIVED PATIENT IN BEDSIDE REPORT. NO PAIN REPORTED. NO S&S OF DISTRESS NOTED. MD BABB JUST IN TO SEE PATIENT, DISCHARGE ORDERS PENDING. BED LOCKED IN LOWEST POSITION, SIDE RAILS UPX2, CALL LIGHT IN REACH.
--- NOTE | 2019-05-28 20:07 | NUR ---
PATIENT DISCHARGED AT THIS TIME. PATIENT'S HOME ATIVAN RETRIEVED FROM PHARMACY AND GIVEN TO PATIENT. IV DISCONTINUED AT 1954, CATHETER TIP INTACT, PRESSURE DRESSING APPLIED. DISCHARGE INSTRUCTIONS GIVEN. FOLLOW UP WITH PCP IN 1 WEEK, FOLLOW UP FOR OUTPATIENT STRESS TEST IN 1-2 WEEKS. PATIENT AND FAMILY MEMBER VERBALIZED UNDERSTANDING. VITALS STABLE. NO S&S OF DISTRESS NOTED. NO QUESTIONS. PATIENT ESCORTED TO FRONT BY STAFF VIA WHEELCHAIR AND SAFELY ASSISTED INTO PRIVATE CAR.
--- NOTE | 2019-05-28 20:21 | Discharge Summary ---
FINAL DISCHARGE DIAGNOSES: 1. Atypical chest pain-resolved. 2. Hypertension. 3. Hyperlipidemia. 4. History of depression and anxiety. CONSULTANTS: Cardiology. PHYSICAL EXAMINATION: VITAL SIGNS: Temperature is 98, pulse is 99, respiratory rate is 16, blood pressure 130/89, and pulse ox 96% on room air. LABORATORY FINDINGS: Show white count is 5.4, hemoglobin 11, hematocrit is 35, and platelets of 225. Chemistry; sodium 139, potassium was 4.2, chloride 106, bicarb 23, anion gap of 13, BUN is 7, creatinine is 0.82, and glucose is 90. Hemoglobin A1c 5.1. Calcium 9.3 and magnesium 1.8. Troponins were negative. CK 44. LDL 81. TSH 1. MICROBIOLOGY: None. IMAGING STUDIES: Chest x-ray, no evidence for acute disease. HOSPITAL COURSE: This is a 63-year-old female, who came into the ED with complaints of chest pain. The patient was admitted and Cardiology was consulted. EKG showed no acute findings. Cardiac enzymes were found to be negative. The patient opted to have her cardiac stress test to be performed as an outpatient. A 2D echo showed no acute findings. The patient was cleared for discharge by Cardiology. Since the patient did not want her stress test performed here, Cardiology recommended to follow up in his office in the next 1 to 2 weeks and an outpatient stress test can be performed. This is the patient's wishes. The patient was chest pain-free prior to being discharged to home. She was cleared for discharge by Cardiology. I spoke with Cardiology personally. On the day of discharge, vital signs were stable, labs reviewed and stable. The patient is seen and evaluated, and examined thoroughly on the day of discharge. No other complaints. The patient verbalized understanding and agrees to plan of care to follow up as an outpatient with the PCP in 1 week and the patient assistant in 1 to 2 weeks' time. MEDICATIONS: See medication reconciliation form. DISPOSITION: Home. CONDITION: Stable. DIET: Heart healthy. In the event of any worsening symptoms, the patient was advised to come back to the ED for further evaluation. Discharge summary took greater than 35 minutes. MD DEXTER Prasad/MODLis /[id number]
== END 2019-05-28 20:07 | disposition home or self-care (01) ==
LOC: ER 15:38 → ERHOLD 16:57 → MED/SURG2 18:34
PROVIDERS: ADMIT Internal Medicine; ATTEND Internal Medicine
DX: R07.89 Other chest pain (principal); F41.9 Anxiety disorder, unspecified; E83.42 Hypomagnesemia; I10 Essential (primary) hypertension; E78.5 Hyperlipidemia, unspecified; E66.01 Morbid (severe) obesity due to excess calories; J44.9 Chronic obstructive pulmonary disease, unspecified; Z87.891 Personal history of nicotine dependence; E11.42 Type 2 diabetes mellitus with diabetic polyneuropathy; K21.9 Gastro-esophageal reflux disease without esophagitis
CPT/HCPCS: 36415 ×2; 71045; 80048; 80053; 80061; 82550 ×2; 82553 ×2; 83036; 83735 ×2; 84443; 84484 ×2; 85025 ×2; 93005; 93306; 99284; G0378 ×2; J7030 ×2; S0164